=== PATIENT | female | born 2000 | race Caucasian/White ===

== ENCOUNTER 2022-05-19 09:12 | Day surgery (SDC) | payer BC, SELFPAY ==
[2022-05-19] VITALS (17 sets, daily range): BP systolic 105–127; BP diastolic 52–87; PULSE 69–94; RESP 13–20; TEMP 36.2–43; O2SAT 96–100; BMI 19.5
--- NOTE | 2022-05-19 09:17 | ED_ITS ---
ED Disposition Clinical Impression: Ectopic Qualifiers: Location of ectopic : unspecified location Intrauterine status: without intrauterine Qualified Code(s): O00.90 - Unspecified ectopic without intrauterine Disposition: Admitted As Inpatient Condition on Discharge: Fair Prescriptions: Hydrocod/Acet 5/325 mg [Gypsy 5/325mg tablet] 1 tab PO Q4HP PRN 3 Days #15 tab PRN Reason: Moderate To Severe Pain Transmission Status: Received by [id number] Ibuprofen [Ibuprofen 800mg Tablet] 800 mg PO Q8HP PRN #20 tab PRN Reason: Moderate Pain Transmission Status: Received by [id number] Ibuprofen [Ibuprofen 800mg Tablet] 800 mg PO Q8HP PRN #20 tab PRN Reason: Moderate Pain Transmission Status: Received by [facility] #[id number] Hydrocod/Acet 5/325 mg [Gypsy 5/325mg tablet] 1 tab PO Q4H PRN 3 Days #15 tab PRN Reason: Moderate To Severe Pain Transmission Status: Received by [facility] #[id number] Referrals: Provider,Referral, [Primary Care Provider] - Forms: Post-Op Work/School Release - Critical Care Critical Care Time: No Attestation: On , the high probability of a clinically significant, sudden or life threatening deterioration of the following system(s) required my full and direct attention, intervention and personal management. The time I documented below is in addition to time spent performing reported procedures but includes the following listed in this critical care notation. Medical Decision Making - Oliver Inquiry Pt receiving controlled substance: No Vital Signs: 05/19/22 09:13 05/19/22 09:25 05/19/22 09:36 Temperature 97.8 F Temperature Source Oral Pulse Rate 70 69 Pulse Rate [Radial] 73 Respiratory Rate 20 18 Blood Pressure 118/73 118/73 Blood Pressure [Right Arm] 115/64 Blood Pressure Mean 98 Blood Pressure Mean [Right Arm] 81 Blood Pressure Source Automatic Cuff Blood Pressure Source [Right Arm] Automatic Cuff Blood Pressure Position Sitting Blood Pressure Position [Right Arm] Sitting 02 Sat by Pulse Oximetry 98 100 100 Oxygen Delivery Method Room Air Room Air 05/19/22 12:00 05/19/22 14:00 05/19/22 14:04 Temperature 98.0 F 98.1 F 98.1 F Temperature Source Oral Temporal Artery Scan Pulse Rate 80 92 H Pulse Rate [Radial] 92 H Respiratory Rate 18 16 16 Blood Pressure 114/75 127/73 Blood Pressure [Right Arm] 127/73 Blood Pressure Mean Blood Pressure Mean [Right Arm] 91 Blood Pressure Source Blood Pressure Source [Right Arm] Automatic Cuff Blood Pressure Position Blood Pressure Position [Right Arm] Supine 02 Sat by Pulse Oximetry 100 Oxygen Delivery Method Room Air Room Air 05/19/22 14:10 05/19/22 14:20 05/19/22 14:30 Temperature Temperature Source Pulse Rate Pulse Rate [Radial] 79 77 71 Respiratory Rate 14 15 14 Blood Pressure Blood Pressure [Right Arm] 114/87 116/53 L 119/77 Blood Pressure Mean Blood Pressure Mean [Right Arm] 96 74 91 Blood Pressure Source Blood Pressure Source [Right Arm] Automatic Cuff Automatic Cuff Automatic Cuff Blood Pressure Position Blood Pressure Position [Right Arm] Supine Supine Supine 02 Sat by Pulse Oximetry 100 100 99 Oxygen Delivery Method Room Air Room Air Room Air 05/19/22 14:40 05/19/22 14:50 05/19/22 15:00 Temperature 97.5 F L Temperature Source Temporal Artery Scan Pulse Rate Pulse Rate [Radial] 77 79 80 Respiratory Rate 15 14 13 Blood Pressure Blood Pressure [Right Arm] 124/58 L 110/58 L 107/60 L Blood Pressure Mean Blood Pressure Mean [Right Arm] 80 75 75 Blood Pressure Source Blood Pressure Source [Right Arm] Automatic Cuff Automatic Cuff Automatic Cuff Blood Pressure Position Blood Pressure Position [Right Arm] Supine Supine Supine 02 Sat by Pulse Oximetry 96 97 97 Oxygen Delivery Method Room Air Room Air Room Air 05/19/22 15:04 05/19/22 15:05 05/19/22 15:20 Temperature 97.5 F L Temperature Source Temporal Artery Scan Pulse Rate Pulse Rate [Radial] 79 80 94 H Respiratory Rate 14 14 16 Blood Pressure Blood Pressure [Right Arm] 112/61 105/55 L 108/65 L Blood Pressure Mean Blood Pressure Mean [Right Arm] 78 71 79 Blood Pressure Source Blood Pressure Source [Right Arm] Automatic Cuff Automatic Cuff Automatic Cuff Blood Pressure Position Blood Pressure Position [Right Arm] Supine Sitting Supine 02 Sat by Pulse Oximetry 97 97 98 Oxygen Delivery Method Room Air Room Air Room Air 05/19/22 15:35 05/19/22 15:45 Temperature 97.2 F L Temperature Source Temporal Artery Scan Pulse Rate Pulse Rate [Radial] 71 72 Respiratory Rate 13 13 Blood Pressure Blood Pressure [Right Arm] 109/52 L 111/56 L Blood Pressure Mean Blood Pressure Mean [Right Arm] 71 74 Blood Pressure Source Blood Pressure Source [Right Arm] Automatic Cuff Blood Pressure Position Blood Pressure Position [Right Arm] Sitting 02 Sat by Pulse Oximetry 97 98 Oxygen Delivery Method Room Air Room Air - Lab Data Lab Results 05/19/22 09:22: Urine Color Yellow, Urine Appearance Clear, Urine pH 5.5, Ur Specific [place] >= 1.030, Urine Protein Negative, Urine Glucose (UA) Negative, Urine Ketones Negative, Urine Blood Negative, Urine Nitrate Negative, Urine Bilirubin Negative, Urine Urobilinogen 0.2, Ur Leukocyte Esterase Negative, Urine RBC None, Urine WBC None, Ur Squamous Epith Cells 3-5, Urine Bacteria Trace 05/19/22 09:22: WBC 8.8, RBC 4.52, Hgb 13.4, Hct 41.1, MCV 90.8, MCH 29.6, MCHC 32.6, RDW 13.6, Plt Count 258, MPV 9.1, Neut % (Auto) 71.2, Lymph % (Auto) 23.3, [place] % (Auto) 3.6, Eos % (Auto) 0.9, Baso % (Auto) 1.0, Neut # (Auto) 6.3, Lymph # (Auto) 2.1, [place] # (Auto) 0.3, Eos # (Auto) 0.1, Baso # (Auto) 0.1 05/19/22 09:22: Sodium 137, Potassium 4.0, Chloride 106, Carbon Dioxide 24, Anion Gap 11.0, BUN 12, Creatinine 0.60, Estimated Creat Clear 116, Estimated GFR 125, Est GFR ( Amer) 151, Glucose 102 H, Calcium 9.0, Total Bilirubin 0.4, AST 27, ALT 20, Alkaline Phosphatase 61, Total Protein 7.2, Albumin 4.2, Globulin 3.0, Albumin/Globulin Ratio 1.4 05/19/22 09:22: HCG, Quant [id number] H 05/19/22 10:12: Blood Type A Positive, Antibody Screen Negative 05/19/22 11:23: SARS-CoV-2 (PCR) Not detected, Influenza A Untype (PCR) Not detected, Influenza Type B (PCR) Not detected Result diagrams: 05/19/22 09:22 05/19/22 09:22 Orders (Tests/Meds): ED MEDICATIONS Discontinued Medications Generic Name Dose Route Start Last Admin Trade Name Freq PRN Reason Stop Dose Admin Hydromorphone HCl 1 mg 05/19/22 09:28 05/19/22 09:31 Hydromorphone 2mg/Ml Syringe IV 05/19/22 09:29 1 mg ONCE ONE Administration Hydromorphone HCl 0.5 mg 05/19/22 09:45 05/19/22 09:46 Hydromorphone 2mg/Ml Syringe IV 05/19/22 09:46 0.5 mg ONCE ONE Administration Hydromorphone HCl 1 mg 05/19/22 11:11 05/19/22 11:26 Hydromorphone 2mg/Ml Syringe IV 05/19/22 11:12 1 mg ONCE ONE Administration Hydromorphone HCl 0.5 mg 05/19/22 14:08 05/19/22 14:55 Hydromorphone 2mg/Ml Syringe IV 05/19/22 16:30 0.5 mg Q5MINP PRN Administration Moderate to Severe Pain Hydromorphone HCl 0.5 mg 05/19/22 16:47 05/19/22 11:47 Hydromorphone 2mg/Ml Syringe IV 05/19/22 16:48 0.5 mg ONCE ONE Administration Lactated Ringer's 1,000 mls @ 999 mls/hr 05/19/22 09:45 Lactated Ringer's 1000 Ml Bag IV 05/19/22 10:45 .Q1H1M MASON Sodium Chloride 1,000 mls @ 999 mls/hr 05/19/22 09:45 05/19/22 09:43 Sod Chlor 0.9% 1000ml Bag IV 05/19/22 10:45 999 mls/hr .Q1H1M MASON Administration Meperidine HCl 12.5 mg 05/19/22 14:08 Meperidine 25mg/Ml 1ml Syringe IV 05/19/22 16:30 Q5MINP PRN Shivering Meperidine HCl 25 mg 05/19/22 14:08 Meperidine 25mg/Ml 1ml Syringe IV 05/19/22 16:30 Q5MINP PRN SHIVERING Morphine Sulfate 2 mg 05/19/22 14:08 Morphine 2mg/Ml Syringe IV 05/19/22 16:30 Q5MINP PRN Severe Pain Ondansetron HCl 4 mg 05/19/22 11:11 05/19/22 11:26 Ondansetron 4mg/2ml Vial IV 05/19/22 11:12 4 mg ONCE ONE Administration Ondansetron HCl 4 mg 05/19/22 14:08 Ondansetron 4mg/2ml Vial IV 05/19/22 16:30 Q6HP PRN Nausea And Vomiting Promethazine HCl 12.5 mg 05/19/22 09:41 05/19/22 09:42 Promethazine Hcl 25mg/Ml 1ml Vial IV 05/19/22 09:42 12.5 mg ONCE ONE Administration Promethazine HCl 6.25 mg 05/19/22 14:08 Promethazine Hcl 25mg/Ml 1ml Vial IV 05/19/22 16:30 [id number] PRN Nausea And Vomiting Sodium Chloride 25 ml 05/19/22 09:41 Sodium Chloride 0.9% 25ml Bag IV 05/19/22 09:42 ONCE ONE Sodium Chloride 25 ml 05/19/22 14:08 Sodium Chloride 0.9% 25ml Bag IV 05/19/22 16:30 NEEDED PRN for Use with IV Promethazine Medical Decision Narrative: 22-year-old female presents emergency department with last menstrual period 03/16 with positive test on 05/03 and patient being seen by obstetrics in [facility]. Patient has right inguinal/right lower quadrant pain today that started intermittently last evening and is now constant and sharp. Patient has abdominal guarding on physical examination. [id number] transabdominal ultrasound was performed without any intrauterine able to be obviously visualized, with transvaginal ultrasound ordered in the emergency department. CBC, CMP ordered in the emergency department as well as 1 L crystalloid bolus and Dilaudid IV for pain control. Quantitative beta-hCG also ordered as well as type and screen, and urinalysis. Patient hemodynamically stable with remainder physical examination nonactionable. Quantitative beta-hCG greater than 14,000, transvaginal ultrasound shows pole in the right adnexal region with moderate blood consistent with ectopic . Obstetrics emergently consulted for ectopic with signs of rupture. Patient is Rh+, patient taken to the operating room. General Adult HPI - General Stated complaint: abd pain Time Seen by Provider: 05/19/22 09:41 - History of Present Illness HPI narrative: 22-year-old female presents emergency department with history of right inguinal/right lower quadrant pain that started last evening around midnight it was intermittent but has been constant for hours with patient stating she has not had fever or vomiting but has had nausea. Patient endorses 1 episode of diarrhea today and states that she has not had dysuria but does endorse frequency. Patient denies chest pain or shortness of breath. Patient states that her pain is sharp and radiates from her right lower quadrant/right inguinal region into anterior right lower extremity to about mid thigh. Patient had positive test on 05/[address] Mahsa Vega at [facility] in [facility] with patient stating that her last menstrual period was 6/4. Patient has had 3 miscarriages in the past and states that she is not passing any clots or having cramping type pain. Patient does state that she has had some blood with wiping after using the restroom, without any blood on pads that has been occurring for about 1 week. Patient has past medical history of PCOS and takes metformin for this. Past surgical history of tympanostomy tubes and colonoscopy due to weight loss history without any diagnosis made. Patient denies allergies to medications, denies smoking drinking or recreational drug use. - Related Data Home Medications Medication Instructions Recorded Confirmed Metformin HCl [Metformin 1000mg 500 mg PO BID 05/19/22 05/19/22 Tablets] Progesterone, Micronized 200 mg VG DAILY 05/19/22 05/19/22 [Progesterone] Sertraline HCl [Zoloft 50mg tablet] 50 mg PO DAILY 05/19/22 05/19/22 Previous Rx's Medication Instructions Recorded Hydrocod/Acet 5/325 mg [Gypsy 1 tab PO Q4H PRN 3 Days #15 tab 05/19/22 5/325mg tablet] Hydrocod/Acet 5/325 mg [Gypsy 1 tab PO Q4HP PRN 3 Days #15 tab 05/19/22 5/325mg tablet] Ibuprofen [Ibuprofen 800mg 800 mg PO Q8HP PRN #20 tab 05/19/22 Tablet] Ibuprofen [Ibuprofen 800mg 800 mg PO Q8HP PRN #20 tab 05/19/22 Tablet] Allergies Allergy/AdvReac Type Severity Reaction Status Date / Time No Known Allergies Allergy Verified 03/01/18 10:49 [facility] History - Hepatitis A Screen Attestation statement:: This patient has been screened for Hepatitis A risk factors. I have reviewed the patient's past medical history: Yes Medical History: Denies:: Cancer, Diabetes Mellitus Type 1, Diabetes Mellitus Type 2, MRSA Laterality Cases: Bilateral: Myringotomy (Ear Tubes) Other Surgeries: Yes: Colonoscopy Amputation: No Fractures: No - Social History Smoking Status: Never smoker Alcohol Intake: never Occupational Status: unemployed Family Hx:: No significant family history ROS Obtained: Yes All systems reviewed & no additional complaints Physical Exam - General General appearance: alert, in distress - Head Head exam: atraumatic, normocephalic - Eye Eye exam: Present: PERRL, EOMI - ENT ENT exam: Present: mucous membranes moist - Neck Neck exam: Present: full ROM, trachea midline - Chest Chest inspection: Present: normal inspection, symmetric chest wall rise - Respiratory Respiratory exam: Present: normal lung sounds bilaterally. Absent: wheezes - Cardiovascular Cardiovascular exam: Present: regular rate, normal rhythm, normal heart sounds - Abdominal Exam Abdominal exam: Present: soft Comment: Tenderness to palpation most prominent in the right lower quadrant/right inguinal region with guarding. No psoas sign - Extremities Exam Extremities exam: Present: normal inspection, full ROM - Back Exam Back exam: Present: normal inspection, full ROM. Absent: tenderness, CVA tenderness (R), CVA tenderness (L) - Neurological Exam Neurological exam: Present: alert, oriented X3
--- NOTE | 2022-05-19 09:20 | PC.NURSE ---
0915 YELENA COLLECTED AND SENT TO LAB
--- NOTE | 2022-05-19 09:25 | PC.NURSE ---
ED MD AT BEDSIDE FOR EVALUATION
[2022-05-19 09:29] LABS: Microscopic, Urine URINE MICROSCOPIC (MICROSCOPIC)
[2022-05-19 09:31] LABS: Appearance,Urine CLEAR (Clear); Basophils # 0.1 K/mm3 (0-0.2); Bilirubin,Urine Negative (Negative); Blood, Urine Negative (Negative); Color,Urine YELLOW (Yellow); Eosinophils # 0.1 K/mm3 (0.0-0.4); Eosinophils % 0.9 % (0.1-12.0); Glucose,Urine (UA) Negative (Negative); Hematocrit 41.1 % (37.0-47.0); Hemoglobin 13.4 g/dL (12.2-16.2); Ketones,Urine Negative (Negative); Leukocyte Esterase,Urine Negative (Negative); Lymphocytes # 2.1 K/mm3 (0.7-4.5); Lymphocytes % 23.3 % (10-50); Mean Corpuscular HGB Conc 32.6 g/dL (31.8-35.4); Mean Corpuscular Hemoglobin 29.6 pg (27.0-31.2); Mean Corpuscular Volume 90.8 fl (81-99); Mean Platelet Volume 9.1 fl (7.4-10.4); Monocytes # 0.3 K/mm3 (0.1-1.0); Monocytes % 3.6 % (1.7-9.3); Neutrophils # 6.3 K/mm3 (1.8-7.8); Neutrophils % 71.2 % (37.0-80.0); Nitrate,Urine Negative (Negative); PH,Urine 5.5 (5.0-8.5); Platelet Count 258 K/mm3 (142-424); Protein,Urine Negative (Negative); Red Blood Count 4.52 M/mm3 (4.20-5.40); Red Cell Distribution Width 13.6 % (11.5-17.5); Specific Gravity, Urine >= 1.030 (1.005-1.030); Urobilinogen,Urine 0.2 EU/dl (0.2); White Blood Count 8.8 K/mm3 (4.8-10.8)
[2022-05-19] MEDS: HYDROMORPHONE 2MG/ML SYRINGE 1 MG IV ×2 (09:31→11:26)
[2022-05-19 09:37] LABS: Alanine Aminotransferase 20 U/L (12-78); Albumin Level 4.2 g/dl (3.5-5.0); Albumin/Globulin Ratio 1.4 (1.1-1.8); Alkaline Phosphatase 61 U/L (38-126); Aspartate Amino Transferase 27 U/L (14-36); Bilirubin,Total 0.4 mg/dl (0.2-1.3); Blood Urea Nitrogen 12 mg/dl (7-17); Carbon Dioxide 24 mmol/L (22.0-30.0); Chloride 106 mmol/L (98-107); Creatinine Clearance Estimated 116 mL/min (50-200); Estimated Glomerular Filt Rate 125 ml/min (>60); GFR (African American) 151 ML/MIN (>60); Glucose 102 mg/dl (74-100); Sodium 137 mmol/L (136-145); Total Protein,Serum 7.2 g/dl (6.3-8.2)
--- NOTE | 2022-05-19 09:37 | US_ITS ---
PROCEDURE INFORMATION: Exam: US , Transvaginal Exam date and time: 05/19/2022 10:37 AM Age: 22 years old Clinical indication: complicated by abdominal or pelvic pain; Right lower quadrant; First trimester (<14 weeks 0 days); Gestational age or lmp: 9 w 1 d; ; Additional info: Right lower quadrant pain started last night; Spotting in early TECHNIQUE: Imaging protocol: Real-time transvaginal obstetrical ultrasound of the maternal pelvis with image documentation. Transvaginal imaging was used for better evaluation of the fetus, adnexa, and/or cervix. COMPARISON: [facility] US OB transvaginal 04/14/2019 8:34 PM FINDINGS: Gestation: A gestational sac is seen in or adjacent to the right ovary. heart rate: heart rate is 79 bpm. BIOMETRY: Gestational age (AUA): The mean sac diameter is 1.51 cm, corresponding to a gestational age of 6 weeks 2 days. The crown-rump length is 2.85 cm, corresponding to a gestational age of 6 weeks 0 days. MATERNAL: Uterus: The uterus measures 7.7 x 4.4 x 5.3 cm. The endometrial canal is thickened with a pseudo gestational sac seen at the fundus. Right ovary/adnexa: A gestational sac is seen in or adjacent to the right ovary. The right ovary measures 5.0 x 4.6 x 2.9 cm. Arterial and venous flow are documented. Left ovary/adnexa: The left ovary measures 3.2 x 1.6 x 2.6 cm. Arterial and venous flow are documented. No mass. Intraperitoneal space: Moderate volume free fluid in the pelvis with internal echoes, suggesting hemorrhage. Urinary bladder: Normal as imaged. IMPRESSION: Ectopic in or adjacent to the right ovary with a moderate amount of blood products in the pelvis. THIS REPORT CONTAINS FINDINGS THAT MAY BE CRITICAL TO PATIENT CARE. The findings were verbally communicated via telephone conference with Min Darden at 11:29 AM EDT on 05/19/2022. The findings were acknowledged and understood.
--- NOTE | 2022-05-19 09:37 | PC.NURSE ---
RADIOLOGY NOTIFIED OF TRANSVAGINAL U/S
[2022-05-19 09:42] LABS: Bacteria,Urine Trace /lpf
[2022-05-19] MEDS: PROMETHAZINE HCL 25MG/ML 1ML VIAL 12.5 MG IV (09:42)
[2022-05-19] MEDS: 0.9 % SODIUM CHLORIDE 1,000 ML 999 ML IV (09:43)
[2022-05-19] MEDS: HYDROMORPHONE 2MG/ML SYRINGE 0.5 MG IV ×3 (09:46→14:55)
--- NOTE | 2022-05-19 09:47 | PC.NURSE ---
called xray for construction job titles ultrasound
--- NOTE | 2022-05-19 10:03 | PC.NURSE ---
PT UPDATED ON POC, S.O AT BEDSIDE. MORE COMFORTABLE AT THIS TIME. NO NEEDS VOICED
--- NOTE | 2022-05-19 10:09 | PC.NURSE ---
LAB AT BEDSIDE
[2022-05-19 10:10] LABS: HCG,Quantitative 14818 mIU/ml (0-5.42)
--- NOTE | 2022-05-19 10:23 | PC.NURSE ---
ROUNDED ON PT, S.O AT BEDSIDE. NO NEEDS VOICED. INFORMED THAT Back& IS ON HER WAY FOR U/S
--- NOTE | 2022-05-19 10:31 | PC.NURSE ---
PT TO US AT THIS TIME
--- NOTE | 2022-05-19 10:35 | PC.NURSE ---
pt to rad
--- NOTE | 2022-05-19 10:59 | INFXCTL.NOTE ---
OB ON-CALL PAGED
--- NOTE | 2022-05-19 11:00 | PC.NURSE ---
JUAN MIGUEL PATE SPEAKING WITH [employer]
--- NOTE | 2022-05-19 11:00 | PC.NURSE ---
ED MD DISCUSSING POC WITH PT AND S.O
--- NOTE | 2022-05-19 11:02 | PC.NURSE ---
JUAN MIGUEL PATE SPEAKING WITH DR. GOINS
--- NOTE | 2022-05-19 11:07 | PC.NURSE ---
DR. GOINS WILL BE IN TO SEE PT
[2022-05-19 11:25] LABS: Coronavirus 19, PCR Not Detected (NotDetected); Influenza A, PCR Not Detected (NotDetected); Influenza B, PCR Not Detected (NotDetected)
[2022-05-19] MEDS: ONDANSETRON 4MG/2ML VIAL 4 MG IV (11:26)
--- NOTE | 2022-05-19 11:30 | PC.NURSE ---
ED MD AT BEDSIDE TO UPDATE PT AND S.O ON POC, DR. GOINS WILL BE IN TO SEE PT. NO NEEDS AT THIS TIME
--- NOTE | 2022-05-19 11:45 | PC.NURSE ---
[id number] SURGERY TEAM AT BEDSIDE
--- NOTE | 2022-05-19 11:51 | HMH.HP ---
*Admission Date: 05/19/22 *Chief complaint: 1. Right lower quadrant pain, vaginal bleeding, positive *History of present illness: Ms Kraig Salinas is a 22 yo at approximately 9 weeks by LMP. She has been seeing Mahsa Vega APRN at at [facility] in [place]. FDP 03/16/22. She was trying to conceive. First positive test was 05/03/22. She has been taking Metformin for PCOS, Zoloft for anxiety and depression, and progesterone to help support this . She reports history of 3 prior spontaneous abortions. She admits to intermittent vaginal bleeding for the past 5 days. RLQ pain started at midnight and has progressively increased. [facility] History I have reviewed the patient's past medical history: Yes (PCOS) Medical History: Reports:: Anxiety, Depression Denies:: Cancer, Diabetes Mellitus Type 1, Diabetes Mellitus Type 2, MRSA *Have you ever received a pneumonia vaccine?: No *Have you received a flu vaccine this season?: No Laterality Cases: Bilateral: Myringotomy (Ear Tubes) Other Surgeries: Yes: Colonoscopy Amputation: No Fractures: No - *Social History Smoking Status: Never smoker Alcohol Intake: never *Occupational Status:: unemployed *Travel in the last 8 weeks: None Family Hx:: No significant family history HUMAN RESOURCES COMPENSATION ANALYST history: Spontaneous (x 3) : 4 Para: 3 A: 3 LMP comments: Review of Systems - Review of Systems Review of systems:: pertinent systems reviewed and negative unless documented below - *Gastrointestinal Reports abdominal pain - *Genitourinary Reports abnormal vaginal bleeding (positive test) Meds Home Medications Medication Instructions Recorded Confirmed Type Metformin HCl [Metformin 1000mg 500 mg PO BID 05/19/22 05/19/22 History Tablets] Progesterone, Micronized 200 mg VG DAILY 05/19/22 05/19/22 History [Progesterone] Sertraline HCl [Zoloft 50mg tablet] 50 mg PO DAILY 05/19/22 05/19/22 History Allergies Allergy/AdvReac Type Severity Reaction Status Date / Time No Known Allergies Allergy Verified 03/01/18 10:49 Exam Vital signs and Labs for Last 24 Hours: Temp Pulse Resp BP Pulse Ox 97.8 F 69 18 118/73 100 05/19/22 09:13 05/19/22 09:36 05/19/22 09:25 05/19/22 09:36 05/19/22 09:36 Laboratory Results - last 24 hr 05/19/22 09:22: Urine Color Yellow, Urine Appearance Clear, Urine pH 5.5, Ur Specific [place] >= 1.030, Urine Protein Negative, Urine Glucose (UA) Negative, Urine Ketones Negative, Urine Blood Negative, Urine Nitrate Negative, Urine Bilirubin Negative, Urine Urobilinogen 0.2, Ur Leukocyte Esterase Negative, Urine RBC None, Urine WBC None, Ur Squamous Epith Cells 3-5, Urine Bacteria Trace 05/19/22 09:22: WBC 8.8, RBC 4.52, Hgb 13.4, Hct 41.1, MCV 90.8, MCH 29.6, MCHC 32.6, RDW 13.6, Plt Count 258, MPV 9.1, Neut % (Auto) 71.2, Lymph % (Auto) 23.3, [place] % (Auto) 3.6, Eos % (Auto) 0.9, Baso % (Auto) 1.0, Neut # (Auto) 6.3, Lymph # (Auto) 2.1, [place] # (Auto) 0.3, Eos # (Auto) 0.1, Baso # (Auto) 0.1 05/19/22 09:22: Sodium 137, Potassium 4.0, Chloride 106, Carbon Dioxide 24, Anion Gap 11.0, BUN 12, Creatinine 0.60, Estimated Creat Clear 116, Estimated GFR 125, Est GFR ( Amer) 151, Glucose 102 H, Calcium 9.0, Total Bilirubin 0.4, AST 27, ALT 20, Alkaline Phosphatase 61, Total Protein 7.2, Albumin 4.2, Globulin 3.0, Albumin/Globulin Ratio 1.4 05/19/22 09:22: HCG, Quant [id number] H 05/19/22 10:12: Blood Type A Positive 05/19/22 11:23: SARS-CoV-2 (PCR) Not detected, Influenza A Untype (PCR) Not detected, Influenza Type B (PCR) Not detected I & O for Last 24 hours: Intake & Output 05/16/22 05/17/22 05/18/22 05/19/22 23:59 23:59 23:59 23:59 Weight 110 lb - Constitutional mild distress - *Routine HEENT Exam Head: Present: normocephalic Eye: Absent: conjunctivae pink ENT: Present: mucous membranes moist - *Routine Respiratory Exam Present: CTA bilaterally - *Routine Cardiovascular Exam Present: RRR - *Routine Abdominal Exam Present: soft, tenderness (RLQ). Absent: distended - *Routine Rectal Exam Rectal:: deferred - *Routine Genitalia Exam Genitalia:: deferred - *Routine Extremities Exam Present: full ROM. Absent: edema, calf tenderness - Routine Psychiatric Exam Present: normal affect H&P: Result - Imaging and Cardiology TESTING Status: final report (Extrauterine gestational sac in or next to right ovary with FHR 79 bpm measuring approximately 6 weeks 0 days) Assessment and Plan (1) Abdominal pain, acute, right lower quadrant Status: Acute Category: Medical Code(s): R10.31 - Right lower quadrant pain (2) Vaginal bleeding affecting early Status: Acute Category: Medical Code(s): O20.8 - Other hemorrhage in early (3) Ectopic Status: Acute Category: Medical Code(s): O00.90 - Unspecified ectopic without intrauterine (4) History of spontaneous Status: Acute Category: Medical Code(s): Z87.59 - Personal history of other complications of , childbirth and the puerperium (5) PCOS (polycystic ovarian syndrome) Status: Acute Category: Medical Code(s): E28.2 - Polycystic ovarian syndrome (6) Anxiety Status: Acute Category: Medical Code(s): F41.9 - Anxiety disorder, unspecified (7) Depression Status: Acute Category: Medical Code(s): F32.A - Depression, unspecified - Assessment and plan all Dx Assessment and Plan for all problems:: To OR for laparoscopy, possible right salpingo oophorectomy. Patient last ate and drank around [id number] on 05/18/22 Discussed risks, benefits, alternatives, expectations and possible complications. All questions addressed and answered. Consent form signed Proceed with surgery.
--- NOTE | 2022-05-19 11:52 | PC.NURSE ---
ob here to talk to pt about surgery
--- NOTE | 2022-05-19 11:59 | PC.NURSE ---
pt is gone to surgery with dr mccloud ob
--- NOTE | 2022-05-19 11:59 | PC.NURSE ---
PT TO SURGERY AT THIS TIME PER OR STAFF
--- NOTE | 2022-05-19 12:29 | HMH.ANESCL ---
[facility] Anesthesia Checklist - Patient Identification Patient Identification: Arm Band - Structural Data Admitted From: Emergency Dept Planned Operative Procedure/s: Diagnostic Laparoscopy, Possible Right Salping-Oopherectomy Consent for Planned Operative Procedure(s) Verified: Yes Verified Documents: Surgical Consent, History and Physical - NPO Status Verified Time NPO: 00:00 - Additional verifications Anesthesia Reactions: No - Airway Assessment C-Spine Mobility Assessed: Yes (mp2) TMJ Mobility Assessed: Yes Dentition: Good Dentition - Neurological Assessment Level of Consciousness: Awake, Alert - Anesthesia Plan Anesthesia Risk discussed: Yes Anesthesia Plan: Verified ASA Class: I (e) Anesthesia Type: General - Preoperative Comments Pre-Operative Comments: nac [facility] History I have reviewed the patient's past medical history: Yes Medical History: Reports:: Anxiety, Depression Denies:: Cancer, Diabetes Mellitus Type 1, Diabetes Mellitus Type 2, MRSA *Have you ever received a pneumonia vaccine?: No *Have you received a flu vaccine this season?: No Anesthesia experience/problems:: nac Laterality Cases: Bilateral: Myringotomy (Ear Tubes) Other Surgeries: Yes: Colonoscopy Amputation: No Fractures: No - *Social History Smoking Status: Never smoker Alcohol Intake: never Substance Use Type: denies use *Occupational Status:: unemployed *Travel in the last 8 weeks: None - Psychiatric History Pschychiatric History:: Reports:: Anxiety, Depression Family Hx:: No significant family history PHOTOGRAPH DEVELOPER history: Spontaneous (x 3) Para: 3 A: 3 LMP comments:
[2022-05-19] MEDS: ROPIVACAINE 0.5% 30ML VIAL 150 MG (13:20)
--- NOTE | 2022-05-19 13:30 | SUR.OPER ---
1325 family given updated
--- NOTE | 2022-05-19 13:41 | SUR.OPER ---
1335 family given an update
--- NOTE | 2022-05-19 14:03 | P.PN_ITS ---
[facility] Anesthesia Record Part I Intake, IV Amount: 1,400 Estimated blood loss (mL): 10 Urine output (mL): 100 Blood Pressure: 127/73 SaO2: 100 Pulse Rate: 92 Respiratory Rate: 16 Temperature: 98.1 F Patient is:: Drowsy, Stable Stable to PACU at:: 14:00
--- NOTE | 2022-05-19 14:07 | P.OP_ITS ---
Date of procedure: 05/19/22 Pre-op Diagnosis:: 1. Abdominal pain, acute, right lower quadrant 2. Vaginal bleeding affecting early 3. Ectopic 4. History of spontaneous 5. PCOS (polycystic ovarian syndrome) 6. Anxiety 7. Depression Post-op Diagnosis:: 1. Abdominal pain, acute, right lower quadrant 2. Vaginal bleeding affecting early 3. Ectopic 4. History of spontaneous 5. PCOS (polycystic ovarian syndrome) 6. Anxiety 7. Depression Procedure performed:: Laparoscopy, right salpingectomy, evacuation of hemoperitoneum Surgeon:: Beena De Paz DO Showcase Maker(s):: Aristeo Mulligan MD INTERNET SOURCER:: Luc Melendez Anesthesia: GETA Estimated blood loss (mL): 10 Clinical Note:: Ms Kraig Salinas is a 22 yo at approximately 9 weeks by LMP. She has been seeing Mahsa Vega APRN at at [facility] in [place]. FDP 03/16/22. She was trying to conceive. First positive test was 05/03/22. She has been taking Metformin for PCOS, Zoloft for anxiety and depression, and progesterone to help support this . She reports history of 3 prior spontaneous abortions. She admits to intermittent vaginal bleeding for the past 5 days. RLQ pain started at midnight and has progressively increased. Pelvic ultrasound demonstrated: A gestational sac is seen in or adjacent to the right ovary. heart rate: heart rate is 79 bpm. BIOMETRY: Gestational age (AUA): The mean sac diameter is 1.51 cm, corresponding to a gestational age of 6 weeks 2 days. The crown-rump length is 2.85 cm, corresponding to a gestational age of 6 weeks 0 days. MATERNAL: Uterus: The uterus measures 7.7 x 4.4 x 5.3 cm. The endometrial canal is thickened with a pseudo gestational sac seen at the fundus. Right ovary/adnexa: A gestational sac is seen in or adjacent to the right ovary. The right ovary measures 5.0 x 4.6 x 2.9 cm. Arterial and venous flow are documented. Left ovary/adnexa: The left ovary measures 3.2 x 1.6 x 2.6 cm. Arterial and venous flow are documented. No mass. Intraperitoneal space: Moderate volume free fluid in the pelvis with internal echoes, suggesting hemorrhage. Urinary bladder: Normal as imaged. IMPRESSION: Ectopic in or adjacent to the right ovary with a moderate amount of blood products in the pelvis. Operative findings:: On bimanual exam, uterus was anteverted and of normal size and shape. No adnexal masses palpated. On laparoscopic exam, normal appearing liver, gallbladder and stomach. Grossly normal appearing uterus and bilateral ovaries. Right fallopian tube containing ectopic with active bleeding from fimbriated end. Blood and clots present in the abdomen and pelvis. Operative note:: Risks, benefits and alternatives were discussed with the patient. Risks include but are not limited to bleeding, infection, damage to adjacent structures and VTE. Patient voiced understanding and agreed to proceed with surgery. She was wheeled back to the operating room and placed under general anesthesia without difficulty. She was placed in the dorsal lithotomy position and prepped and draped in normal sterile fashion. A barnhart catheter was inserted into the bladder and draining clear urine prior to the start of the procedure. A bimanual exam was performed. A weighted Auvard was placed in the vaginal vault. A single tooth tenaculum was placed on the anterior lip of the cervix. [place] manipulator was inserted into the cervical canal and attached to the tenaculum. Weighted Auvard was removed from the vagina. Attention was then drawn to the abdomen. A 2cm infraumbilical incision was made. Veress needle was tested and inserted intraabdominally without difficulty. Opening pressure of 7 mm Hg that quickly jumped to 15 mm Hg. Veress needle was removed and reinserted. Opening pressure on second insertion was 4 mm Hg and the increased to 12 mm Hg. Abdomen was insulflated with CO2 gas to a pressure of 15 mm Hg. A 12 mm blunt trocar with laparoscope was inserted into the abdomen. The trocar and scope were removed and laparoscope was reinserted and access to peritoneal cavity was not achieved. Dr. Mulligan was consulted to help access peritoneal cavity. Dr. Mulligan inserted Veress needle in RUQ. Opening pressure was 4 mm Hg. Abdomen was then insulflated to 15 mm Hg. Trocar was inserted through infraumbilical incision and laparoscope was inserted. Abdomen was viewed in its entirety. See findings above. Pictures were taken. Left lower quadrant was transilluminated. 5 mm incision was made and 5 mm disposable blunt trocar was inserted into the abdomen under direct laparoscopic visualization. Trocar was removed and sleeve was left in place. Right lower quadrant was transilluminated. A 2 cm incision was made and a 12 mm disposable trocar was inserted into the abdomen under direct laparoscopic visualization. Obturator was removed and sleeve was left in place. Hemoperitoneum was evacuated. Fimbriated end of right fallopian tube was grasped and Sycamore clamp. Harmonic was used to transect the right mesosalpinx and fallopian tube at uterine cornua, leaving right ovary in situ. Endopouch was inserted through the trocar and into the abdomen. Right fallopian tube with ectopic were placed in the Endopouch, intact. Endopouch with specimen was removed from the abdomen and will be sent to pathology for review. Hemostasis was noted. Pelvis was irrigated with clear return of fluids. Left lower quadrant trocar was removed under direct laparoscopic visualization. Right lower quadrant trocar was removed under direct laparoscopic visualization. Pneumoperitoneum was released into the atmosphere. Infraumbilical trocar was removed under direct laparoscopic visualization to ensure no herniation of bowel or omentum. Skin incisions were closed with 3-0 Vicryl. Steri strips followed by sterile 2 x 2 gauze and Tegaderm was applied over closed skin incisions. All instruments were removed from the vagina. Tenaculum site was noted to be hemostatic. Barnhart catheter was noted to be draining clear urine at the end of the procedure. Barnhart catheter was removed. Patient was cleaned and placed into the dorsal supine position. She awoke from anesthesia without difficulty. She was transported to the recovery room in [facility] emergency condition. She was given instructions for discharge and to follow-up in the office in 2 weeks at which time pathology will be reviewed. Condition: stable Disposition: same day Specimens:: Right fallopian tube and ectopic Complications:: None
[2022-05-20 07:27] VITALS: BP 112/61; PULSE 79; TEMP 36.4
--- NOTE | 2022-05-20 07:27 | HMH.ANESII ---
[facility] Anesthesia Record Part II Discharge Time: 15:04 Destination: Surgical Day Care (OP Surgery) PACU nurse assessment reviewed?: Yes Patient Condition:: Good Anesthesia Complications:: None Swallowing reflex intact?: Yes Cyanosis?: No Blood Pressure: 112/61 Pulse Rate: 79 Temperature: 97.5 F Mental Status: Alert & Oriented Pain level:: 5 Nausea and/or vomitting:: None Intake, IV Amount: 0
== END 2022-05-19 12:00 | disposition home or self-care (01) ==
PROVIDERS: Obstetrics & Gynecology; Visit Provider Student in an Organized Health Care Education/Training Program
PROC: (CPT 49320; principal; 2022-05-19 12:30)
DX: O26.851 Spotting complicating pregnancy, first trimester (principal); E28.2 Polycystic ovarian syndrome; Z87.59 Personal history of other complications of pregnancy, childbirth and the puerperium; R10.31 Right lower quadrant pain; O00.90 Unspecified ectopic pregnancy without intrauterine pregnancy; N96 Recurrent pregnancy loss; F41.9 Anxiety disorder, unspecified; F32.A Depression, unspecified; Z3A.09 9 weeks gestation of pregnancy
CPT/HCPCS: 59151; 76817; 80053; 81001; 84702; 85025; 86850; 86900; 86901; C9803; J2405; J2710; U0003; U0005

== ENCOUNTER → 2022-06-08 08:01 | Outpatient (CLI) | payer BC, SELFPAY ==
[2022-06-08 09:32] LABS: HCG,Quantitative 16 mIU/ml (0-5.42)
== END ==
PROVIDERS: Visit Provider Obstetrics & Gynecology
DX: Z34.90 Encounter for supervision of normal pregnancy, unspecified, unspecified trimester (principal)
CPT/HCPCS: 36415; 84702

== ENCOUNTER → 2022-06-21 16:47 | Outpatient (CLI) | payer BC, SELFPAY ==
[2022-06-21 19:12] LABS: HCG,Quantitative < 2 mIU/ml (0-5.42)
== END ==
PROVIDERS: Visit Provider Obstetrics & Gynecology
DX: O02.1 Missed abortion (principal)
CPT/HCPCS: 36415; 84702

== ENCOUNTER → 2022-07-10 15:50 | Outpatient (CLI) | payer BC, SELFPAY ==
[2022-07-10 17:38] LABS: Thyroid Stimulating Hormone 0.99 uIU/mL (0.465-4.68)
[2022-07-12 16:08] LABS: Anti-Cardio Antibody IgM <9 MPL U/mL (0-12); Anti-Cardiolipin Antibody IgG <9 GPL U/mL (0-14); Anticardiolipin Ab,IgA,Qn <9 APL U/mL (0-11)
[2022-07-19 18:09] LABS: APTT 27.3 sec (.); Anti-Cardiolipin Antibody IgG <10 GPL (.); Anti-Cardiolipin Antibody IgM <10 MPL (.); Beta-2 Glycoprotein I Ab, IgA <10 SAU (.); Beta-2 Glycoprotein I Ab, IgG <10 SGU (.); Beta-2 Glycoprotein I Ab, IgM <10 SMU (.); Hexagonal Phase Phospholipid 0 sec (.); INR 1.1 ratio (.); Prothrombin Time 11.9 sec (.); Thrombin Time 21.8 sec (.)
== END ==
PROVIDERS: Visit Provider Obstetrics & Gynecology
DX: N96 Recurrent pregnancy loss (principal)
CPT/HCPCS: 36415; 84443; 85597; 85598; 85610; 85613; 85670; 85730; 86146; 86147

== ENCOUNTER → 2022-12-21 10:44 | Outpatient (CLI) | payer BC, SELFPAY ==
[2022-12-21 12:35] LABS: Basophils # 0.1 K/mm3 (0-0.2); Basophils % 1.6 % (0.1-2.0); Eosinophils # 0.2 K/mm3 (0.0-0.4); Eosinophils % 3.7 % (0.1-12.0); Hematocrit 41.7 % (37.0-47.0); Hemoglobin 13.7 g/dL (12.2-16.2); Lymphocytes # 1.7 K/mm3 (0.7-4.5); Lymphocytes % 40.3 % (10-50); Mean Corpuscular HGB Conc 32.9 g/dL (31.8-35.4); Mean Corpuscular Hemoglobin 29.6 pg (27.0-31.2); Mean Corpuscular Volume 89.9 fl (81-99); Mean Platelet Volume 9.3 fl (7.4-10.4); Monocytes # 0.3 K/mm3 (0.1-1.0); Monocytes % 6.3 % (1.7-9.3); Neutrophils # 2.1 K/mm3 (1.8-7.8); Platelet Count 233 K/mm3 (142-424); Red Blood Count 4.63 M/mm3 (4.20-5.40); Red Cell Distribution Width 13.5 % (11.5-17.5); White Blood Count 4.3 K/mm3 (4.8-10.8)
[2022-12-21 12:48] LABS: Chloride 105 mmol/L (98-107); Potassium 4.4 mmoL/L (3.5-5.1); Sodium 139 mmol/L (136-145)
[2022-12-21 12:51] LABS: Alanine Aminotransferase 14 U/L (12-78); Albumin Level 4.1 g/dl (3.5-5.0); Albumin/Globulin Ratio 1.5 (1.1-1.8); Alkaline Phosphatase 58 U/L (38-126); Anion Gap 11.4 mEq/L (5-15); Aspartate Amino Transferase 26 U/L (14-36); Bilirubin,Total 1.1 mg/dl (0.2-1.3); Blood Urea Nitrogen 13 mg/dl (7-17); Calcium 8.6 mg/dl (8.4-10.2); Carbon Dioxide 27 mmol/L (22.0-30.0); Estimated Glomerular Filt Rate 105 ml/min (>60); GFR (African American) 127 ML/MIN (>60); Globulin 2.8 g/dL (1.3-3.2); Glucose 71 mg/dl (74-100); Total Protein,Serum 6.9 g/dl (6.3-8.2)
[2022-12-21 13:16] LABS: HCG,Quantitative < 2 mIU/ml (0-5.42)
== END ==
PROVIDERS: Visit Provider Obstetrics & Gynecology
DX: N96 Recurrent pregnancy loss (principal)
CPT/HCPCS: 36415; 80053; 84702; 85025

== ENCOUNTER 2022-12-26 06:03 | Day surgery (SDC) | payer BC, SELFPAY ==
[2022-12-25 09:05] VITALS: BMI 20.2
[2022-12-26] VITALS (10 sets, daily range): BP systolic 98–125; BP diastolic 49–78; PULSE 60–96; RESP 3–18; TEMP 36.4–36.9; O2SAT 97–100
--- NOTE | 2022-12-26 06:49 | EXP.ANES.CKL ---
[facility] Disclaimer: The information contained in this section may have been updated after the patient was seen, as this information can be updated by other users. Medical History Dysmenorrhea Follow-up exam Hx of ectopic Irregular periods Migraine Patient desires Recurrent loss Screening for genetic disease carrier status Surgical History History of bilateral fallopian tube excision Family History Other No significant family history Social History Smoking Status: Never smoker alcohol intake: never substance use type: denies use current occupational status: unemployed Travel in the last 8 weeks: None [facility] Anesthesia Checklist Patient Identification Patient Identification: Arm Band and Verbal (Name & ) Structural Data Admitted From: Home Planned Operative Procedure/s: Hysteroscopy, D & C Consent for Planned Operative Procedure(s) Verified: Yes NPO Status Verified Time NPO: 00:00 Chart Verification Results Verified: CBC, BMP and HCG Additional verifications Anesthesia Reactions: No Hx Blood Transfusions: No Blood Transfusion Reaction: No Airway Assessment C-Spine Mobility Assessed: Yes TMJ Mobility Assessed: No Dentition: Good Dentition Neurological Assessment Level of Consciousness: Awake Hx Seizures: No Numbness or tingling in extremities: No Anesthesia Plan Anesthesia Risk discussed: Yes Anesthesia Plan: Verified ASA Class: II Anesthesia Type: MAC
--- NOTE | 2022-12-26 09:10 | EXP.OP.NOTE ---
Date of procedure: 12/26/22 Pre-op Diagnosis:: 1. Recurrent loss Post-op Diagnosis:: 1. Recurrent loss Procedure performed:: Diagnostic hysteroscopy Surgeon:: Beena De Paz DO Director Industrial Relations(s):: N/a GUNITE MIXER:: Pravin Cabrera Anesthesia: GETA Estimated blood loss (mL): 0 Clinical Note:: Ms Kraig thomason is a very pleasant 22 yo [id number] who presents to [facility] for scheduled procedure. She has history of recurrent loss. She had pre-conceptual counseling with [facility]. She was given a script for progesterone which she was instructed to start day 3 after ovulation. An HSG or hysteroscopy to evaluate uterus was also recommended. She is doing well on Metformin 500 mg TID and PNV daily. She admits periods have been regular. Operative findings:: On bimanual exam, uterus normal size and shape, midposition. No adnexal masses palpated On hysteroscopic exam, bilateral tubal ostia easily visualized. Grossly normal appearing endometrial cavity. No lesions or masses. Operative note:: Risks, benefits and alternatives were discussed with the patient. Risks include but are not limited to bleeding, infection, uterine perforation and VTE. Patient voiced understanding and agreed to proceed. She was wheeled back to the operating room and placed under general anesthesia without difficulty. She was placed in dorsal lithotomy position and prepped and draped in the normal sterile fashion. A bimanual exam was performed. A weighted Auvard was placed in the vaginal vault. Single tooth tenaculum was placed on anterior lip of the cervix. Uterus sounded to 6. Sequential Uche dilators were used to dilate the cervical os. Hysteroscope was inserted through the cervix without difficulty. Endometrial cavity was evaluated. See findings above. Pictures were taken. Hysteroscope was removed. Instruments were removed from the vagina. Small amount of oozing at tenaculum site noted. Silver nitrate stick x 2 and pressure resulted in hemostasis. Patient was awaken from anesthesia without difficulty. She was transported to recovery room in stable condition. Patient will be discharged home when awake and ambulating. She was given postop instructions as well as instructions to follow-up in the office in 2 weeks. Condition: stable Disposition: same day Specimens:: N/a Complications:: None
== END 2022-12-26 10:32 | disposition home or self-care (01) ==
PROVIDERS: Visit Provider Obstetrics & Gynecology
PROC: 0UDB8ZZ Extraction of Endometrium, Via Natural or Artificial Opening Endoscopic (ICD-10-PCS; CPT 58558; principal; 2022-12-26 07:30)
DX: N96 Recurrent pregnancy loss (principal); Z79.899 Other long term (current) drug therapy
CPT/HCPCS: 58555; J2405

== ENCOUNTER → 2023-02-06 16:39 | Outpatient (CLI) | payer BC, SELFPAY ==
[2023-02-08 12:10] LABS: Progesterone 26.5 ng/mL (.)
== END ==
PROVIDERS: Visit Provider Obstetrics & Gynecology
DX: E28.2 Polycystic ovarian syndrome (principal)
CPT/HCPCS: 36415; 84144

== ENCOUNTER → 2023-03-07 16:44 | Outpatient (CLI) | payer BC, SELFPAY ==
[2023-03-09 06:47] LABS: Progesterone 13.5 ng/mL (.)
== END ==
PROVIDERS: PCP Obstetrics & Gynecology; Visit Provider Obstetrics & Gynecology
DX: E28.2 Polycystic ovarian syndrome (principal)
CPT/HCPCS: 36415; 84144

== ENCOUNTER → 2023-07-15 23:42 | Outpatient (CLI) | payer BC, SELFPAY ==
[2023-07-15 19:40] LABS: Hemoglobin A1C 4.8 % (4.0-6.0)
[2023-07-15 20:01] LABS: HCG,Quantitative < 2 mIU/ml (0-5.42)
== END ==
PROVIDERS: PCP Nurse Practitioner; Visit Provider Nurse Practitioner
DX: R30.0 Dysuria (principal); R82.4 Acetonuria; E28.2 Polycystic ovarian syndrome; Z79.899 Other long term (current) drug therapy
CPT/HCPCS: 83036; 84702; 87086

== ENCOUNTER → 2023-07-23 15:57 | Outpatient (CLI) | payer BC, SELFPAY | PROVIDERS: PCP Nurse Practitioner; Visit Provider Nurse Practitioner | DX: R35.0 Frequency of micturition (principal) | CPT/HCPCS: 87086 ==

== ENCOUNTER → 2023-07-31 16:47 | Outpatient (CLI) | payer BC, SELFPAY ==
[2023-08-02 08:15] LABS: Estradiol 27.2 pg/mL (.)
== END ==
PROVIDERS: PCP Nurse Practitioner; Visit Provider Obstetrics & Gynecology
DX: E28.2 Polycystic ovarian syndrome (principal); Z31.9 Encounter for procreative management, unspecified
CPT/HCPCS: 36415; 82670

== ENCOUNTER → 2023-08-14 23:41 | Outpatient (CLI) | payer OTHER, SELFPAY | PROVIDERS: PCP Nurse Practitioner; Visit Provider Nurse Practitioner | DX: R80.9 Proteinuria, unspecified (principal) | CPT/HCPCS: 87086 ==

== ENCOUNTER → 2023-09-02 19:55 | Outpatient (CLI) | payer OTHER, SELFPAY ==
[2023-09-04 08:17] LABS: Estradiol 59.4 pg/mL (.)
== END ==
PROVIDERS: PCP Obstetrics & Gynecology; Visit Provider Obstetrics & Gynecology
DX: E28.2 Polycystic ovarian syndrome (principal)
CPT/HCPCS: 82670

== ENCOUNTER → 2023-09-11 16:41 | Outpatient (CLI) | payer OTHER, SELFPAY ==
[2023-09-11 16:56] LABS: Basophils % 0.6 % (0.1-2.0); Eosinophils # 0.1 K/mm3 (0.0-0.4); Eosinophils % 1.8 % (0.1-12.0); Hematocrit 40.2 % (37.0-47.0); Hemoglobin 14.1 g/dL (12.2-16.2); Lymphocytes # 2.4 K/mm3 (0.7-4.5); Lymphocytes % 34.2 % (10-50); Mean Corpuscular HGB Conc 35.1 g/dL (31.8-35.4); Mean Corpuscular Hemoglobin 30.6 pg (27.0-31.2); Mean Corpuscular Volume 87.2 fl (81-99); Mean Platelet Volume 9.1 fl (7.4-10.4); Monocytes # 0.3 K/mm3 (0.1-1.0); Monocytes % 3.8 % (1.7-9.3); Neutrophils # 4.2 K/mm3 (1.8-7.8); Neutrophils % 59.6 % (37.0-80.0); Platelet Count 221 K/mm3 (142-424); Red Blood Count 4.61 M/mm3 (4.20-5.40); Red Cell Distribution Width 13.2 % (11.5-17.5)
[2023-09-13 09:12] LABS: Antistreptolysin O Ab 88.4 IU/mL (0.0-200.0); Cytomegalovirus (CMV) Ab, IgG >10.00 U/mL (0.00-0.59); Cytomegalovirus (CMV) Ab, IgM <30.0 AU/mL (0.0-29.9)
[2023-09-13 12:10] LABS: Lyme Ab CIA Negative (Negative)
[2023-09-15 15:09] LABS: EBV Ab VCA, IgM <36.0 U/mL (0.0-35.9); EBV Nuclear Antigen Ab, IgG <18.0 U/mL (0.0-17.9)
[2023-09-15 21:40] LABS: Lyme Interpretation Negative
== END ==
LOC: LAB 16:42
PROVIDERS: PCP Nurse Practitioner; Visit Provider Nurse Practitioner
DX: R59.0 Localized enlarged lymph nodes (principal)
CPT/HCPCS: 36415; 85025; 86060; 86618; 86644; 86645; 86664; 86665

== ENCOUNTER → 2023-09-15 15:32 | Outpatient (CLI) | payer OTHER, SELFPAY ==
--- NOTE | 2023-09-15 15:44 | US_ITS ---
FINAL REPORT CLINICAL HISTORY: left cervical LAD FINDINGS: Limited sonographic images of the soft tissue neck were obtained. The bilateral submandibular and bilateral parotid glands are normal. There is a 2.4 cm left neck soft tissue nodule consistent with an enlarged lymph node. Finding is nonspecific but likely reactive. IMPRESSION: Enlarged left neck lymph node, likely reactive. If symptoms persist, follow-up may be helpful. Reviewed, Interpreted and Dictated by Checo Wilson III, MD Transcribed by Yanni Mendez Authenticated and [facility]
== END ==
LOC: RAD 15:33
PROVIDERS: PCP Nurse Practitioner; Visit Provider Nurse Practitioner
DX: R59.0 Localized enlarged lymph nodes (principal)
CPT/HCPCS: 76536

== ENCOUNTER → 2023-09-22 19:45 | Outpatient (CLI) | payer OTHER, SELFPAY ==
[2023-09-22 21:42] LABS: HCG,Quantitative < 2 mIU/ml (0-5.42)
[2023-09-24 13:15] LABS: Progesterone 0.5 ng/mL (.)
== END ==
LOC: LAB.DROPOF 19:46
PROVIDERS: PCP Obstetrics & Gynecology; Visit Provider Obstetrics & Gynecology
DX: N91.2 Amenorrhea, unspecified (principal)
CPT/HCPCS: 84144; 84702

== ENCOUNTER → 2023-09-29 07:00 | Outpatient (CLI) | payer OTHER, SELFPAY ==
[2023-09-29 18:21] LABS: Adenovirus,PCR Not Detected (NotDetected); Coronavirus 19, PCR Not Detected (NotDetected); Coronavirus 229E Not Detected (NotDetected); Coronavirus NL63 Not Detected (NotDetected); Coronavirus OC43 Not Detected (NotDetected); Coronovirus HKU1,PCR Not Detected (NotDetected); Human Metapneumovirus Not Detected (NotDetected); Influenza A, PCR Not Detected (NotDetected); Influenza AH1, 2009 Not Detected (NotDetected); Influenza AH1, PCR Not Detected (NotDetected); Influenza AH3,PCR Not Detected (NotDetected); Influenza B, PCR Not Detected (NotDetected); Parainfluenza 1, PCR Not Detected (NotDetected); Parainfluenza 2, PCR Not Detected (NotDetected); Parainfluenza 3, PCR Not Detected (NotDetected); Parainfluenza 4, PCR Not Detected (NotDetected); Respiratory Syncytial Virus Not Detected (NotDetected); Rhinovirus/Enterovirus Not Detected (NotDetected)
== END ==
LOC: LAB.DROPOF 09-30 07:00
PROVIDERS: PCP Nurse Practitioner; Visit Provider Nurse Practitioner
DX: J06.9 Acute upper respiratory infection, unspecified (principal)
CPT/HCPCS: 87581; 87632; 87635; 87798

== ENCOUNTER 2023-11-03 09:19 | Outpatient (CLI) | payer OTHER, SELFPAY ==
--- NOTE | 2023-11-03 09:19 | CT_ITS ---
FINAL REPORT CLINICAL HISTORY: enlarged lymph node COMPARISON: None FINDINGS: CT SOFT TISSUES NECK: The nasopharynx, oropharynx, and hypopharynx are unremarkable in appearance. The tonsils are unremarkable. The thyroid gland is normal. There are a few small scattered bilateral cervical nodes, nonspecific. There is a subcutaneous nodule posteriorly overlying the right trapezius muscle, measuring 1 cm in size, best seen on image #61 of series #3. This may represent a small subcutaneous node. IMPRESSION: Few small scattered bilateral cervical nodes, nonspecific. Subcutaneous nodule overlying the right trapezius as described, possibly a small subcutaneous lymph node. Reviewed, Interpreted and Dictated by Klever Ryan MD Transcribed by Yanci Stein Authenticated and [facility]
--- NOTE | 2023-11-03 09:19 | FL_ITS ---
FINAL REPORT CLINICAL HISTORY: pcos, desire for 0.13 min DAP 87.16 FINDINGS: FLUOROSCOPY LESS THAN 1 HOUR HISTORY: Fluoroscopy guidance. Fluoroscopic guidance was provided for hysterosalpingography. 2 spot films were obtained. A total of 0.13 minutes of fluoroscopy time were used. Total DAP: 87.16 mGy IMPRESSION: As above. Reviewed, Interpreted and Dictated by Klever Ryan MD Transcribed by Sarah Beth Eden Authenticated and . [facility]
--- NOTE | 2023-11-03 10:25 | HMH.PROCNOTE ---
[facility] Procedure Note Date: 11/03/23 Time: 10:25 Procedure Note:: Patient was positioned in the dorsal lithotomy position. Speculum was inserted. Cervix and vagina was cleansed with Hibiclens swabs x 2. Tenaculum was placed on anterior lip of the cervix. 10 cc of contrast was drawn up into a syringe and attached to the Jesse HSG cannula. Contrast was flushed through cannula to remove air bubbles and ensure patency. Cannula was then inserted into the cervix. Fluoroscopy was initiated with 2 cc of contrast injected into the endometrial cavity. Fluoroscopy demonstrated contrast immediately flowing from endometrial cavity through bilateral fallopian tubes revealing patent left fallopian tube. History of right salpingectomy. Cannula was removed from the cervix. Tenaculum was removed from the cervix. Small amount of oozing noted from right tenaculum site. Pressure applied to tenaculum site with sponge stick. Reevaluation of tenaculum site demonstrated hemostasis. Speculum removed from the vagina. Patient tolerated the procedure well.
[2023-11-03] MEDS: IOPAMIDOL-370 (76%);100ML BOTTLE 10 ML IV (10:39)
== END 2023-11-03 23:59 ==
LOC: RAD 09:19
PROVIDERS: PCP Nurse Practitioner; Visit Provider Nurse Practitioner
DX: R59.1 Generalized enlarged lymph nodes (principal); E28.2 Polycystic ovarian syndrome; Z31.9 Encounter for procreative management, unspecified
CPT/HCPCS: 70490; 74740; Q9967

== ENCOUNTER 2023-11-25 19:59 | Outpatient (CLI) | payer OTHER, SELFPAY ==
[2023-11-25 19:01] LABS: HCG,Quantitative < 2 mIU/ml (0-5.42)
== END 2023-11-25 23:59 ==
LOC: LAB.DROPOF 19:59
PROVIDERS: PCP Obstetrics & Gynecology; Visit Provider Obstetrics & Gynecology
DX: N92.6 Irregular menstruation, unspecified (principal)
CPT/HCPCS: 84702

== ENCOUNTER 2024-01-22 15:03 | Outpatient (CLI) | payer OTHER, SELFPAY ==
--- NOTE | 2024-01-22 15:04 | US_ITS ---
FINAL REPORT CLINICAL HISTORY: RUQ pain FINDINGS: Sonographic images of the right upper quadrant were obtained. The pancreas is partially obscured.The liver has an unremarkable appearance.The gallbladder appears normal without evidence of gallstones.There is no evidence of biliary ductal dilatation.The common duct measures 2mm. Limited images of the right kidney are unremarkable. IMPRESSION: Unremarkable right upper quadrant ultrasound. Reviewed, Interpreted and Dictated by Checo Wilson III, MD Transcribed by Nica Dueñas Authenticated and . [facility]
== END 2024-01-22 23:59 | disposition home or self-care (01) ==
LOC: RAD 15:04
PROVIDERS: PCP Nurse Practitioner; Visit Provider Nurse Practitioner Family
DX: R10.11 Right upper quadrant pain (principal)
CPT/HCPCS: 76705

== ENCOUNTER 2024-02-01 12:09 | Emergency (ER) | payer OTHER, SELFPAY ==
[2024-02-01 12:10] VITALS: BP 107/48; PULSE 92; RESP 20; TEMP 36.9; O2SAT 100; BMI 20.3
[2024-02-01 12:20] VITALS: BMI 20.3
--- NOTE | 2024-02-01 12:21 | CT_ITS ---
PROCEDURE INFORMATION: Exam: CT Abdomen And Pelvis With Contrast Exam date and time: 02/01/2024 1:13 PM Age: 23 years old Clinical indication: Abdominal pain; Additional info: Rlq pain TECHNIQUE: Imaging protocol: Computed tomography of the abdomen and pelvis with contrast. Radiation optimization: All CT scans at this facility use at least one of these dose optimization techniques: automated exposure control; mA and/or kV adjustment per patient size (includes targeted exams where dose is matched to clinical indication); or iterative reconstruction. Contrast material: ISOVUE; Contrast volume: 75 ml; Contrast route: IV; COMPARISON: US GALLBLADDER 01/22/2024 3:04 PM FINDINGS: Limitations: Mild motion artifact. Liver: Normal. No mass. Gallbladder and bile ducts: Normal. No calcified stones. No ductal dilation. Pancreas: Normal. No ductal dilation. Spleen: Normal. No splenomegaly. Adrenal glands: Normal. No mass. Kidneys and ureters: Normal. No hydronephrosis. Stomach and bowel: Unremarkable. No obstruction. No mucosal thickening. Appendix: No evidence of appendicitis. Intraperitoneal space: Unremarkable. No free air. No significant fluid collection. Vasculature: Unremarkable. No abdominal aortic aneurysm. Lymph nodes: Unremarkable. No enlarged lymph nodes. Urinary bladder: Unremarkable as visualized. Reproductive: Unremarkable as visualized. Bones/joints: Unremarkable. No acute fracture. Soft tissues: Unremarkable. IMPRESSION: No acute findings.
--- NOTE | 2024-02-01 12:28 | ED_ITS ---
Discharge Plan Disposition Chief Complaint: Abdominal Pain Prescriptions Prescriptions: New ketorolac 10 mg tablet 10 mg PO Q8H Qty: 10 0RF Rx Instructions: maximum total duration of 5 days from all oral, intranasal, or parenteral formulations nitrofurantoin monohyd/m-cryst [Macrobid] 100 mg capsule 100 mg PO Q12H 7 Days Qty: 14 0RF Rx Instructions: must administer with a meal/food Continued fluticasone propionate 50 mcg/actuation spray,suspension 1 spray intranasal DAILY Qty: 16 2RF Rx Instructions: administer into each nostril mirtazapine 15 mg tablet 7.5 - 15 mg PO HS PRN (Reason: insomnia) Qty: 30 2RF progesterone micronized 100 mg capsule 100 mg vaginal DAILY Patient Comments: INSERT 1 CAPSULE INTO THE VAGINA DAILY. Classic 28 mg iron- 800 mcg tablet PO DAILY Zyrtec 10 mg capsule 10 mg PO DAILY PRN Ovidrel 250 mcg/0.5 mL syringe 250 mcg SQ ONCE Qty: 0.5 0RF ondansetron HCl 4 mg tablet 4 mg PO Q8H PRN (Reason: nausea and vomiting) Qty: 20 0RF famotidine 20 mg tablet 20 mg PO DAILY Qty: 30 2RF clomiphene citrate [Clomid] 50 mg tablet 50 mg PO DAILY 5 Days Qty: 5 0RF Rx Instructions: Take days 5-9 of menstrual cycle buspirone 15 mg tablet 15 mg PO TID Qty: 270 3RF metformin 1,000 mg tablet 500 mg PO TID sertraline 50 mg tablet 100 mg PO DAILY Referrals Follow up/Referrals: Shanna aMta APRN [Primary Care Provider] - See instructions Instructions Patient Instructions: DI for Acute Abdominal Pain Discharge ED Provider: Josafat Jewell General Adult HPI <Parish Sotelo MD - Last Filed: 02/01/24 16:45> General Chief complaint: Abdominal Pain Stated complaint: abd pain going down through legs Time Seen by Provider: 02/01/24 12:24 Mode of Arrival: Wheelchair Source of Information: Patient Limitations: No Limitations Description of Symptoms (Recalled from ER Triage Doc. by RN): r sided abdominal pain. hx of ectopic with tube removal. started bleeding vaginally this morning History of Present Illness HPI narrative: This patient presents for evaluation of right sided suprapubic abdominal pain Onset: Approximately 1030 this morning after waking up Location: Right lower quadrant, lateral to suprapubic area Duration: Since that time Characteristic: Dull, achy Alleviating/Aggrivating Factors: None identifiable Radiation: Down her right leg Timing: Constant Severity: Severe Associated symptoms: Vaginal bleeding, approximately 1 pad ROS: Denies any preceding trauma, denies any dysuria, frequency, vaginal discharge, history of similar symptoms. Does note history of ectopic status post removal of fallopian tube on ipsilateral side pain. Last menstrual period approximately 3 weeks ago. Please note that above description of symptoms, in this electronic medical record under categorization of recalled from ER triage doctor by RN are reflective of an initial nursing assessment, however, is not reflective of my full history and physical exam that was personally taken and clarified. Consequentially, this preceding description of symptoms, which may include the patient's categorized chief complaint in the EMR, do not reflect my personal clinical impression, and the ultimate description of history of present illness and patient stated complaints should be deferred to this section of the note. Unless stated otherwise or congruent with this section of the note, additional signs, symptoms, or incongruence should be interpreted as inaccurate with my clinical impression. Related Data Home Medications Medication Instructions Recorded Confirmed metformin 1,000 mg tablet 500 mg PO TID PCOS 07/10/22 01/26/24 progesterone micronized 100 mg 100 mg vaginal DAILY hormone 12/20/22 01/26/24 capsule replacement vits no.126-ferrous fum tab PO DAILY 03/31/23 01/26/24 28 mg iron-folic acid 800 mcg tablet (Classic ) cetirizine 10 mg capsule (Zyrtec) 10 mg PO DAILY PRN 05/28/23 01/26/24 sertraline 50 mg tablet 100 mg PO DAILY Depression 01/26/24 01/26/24 Previous Rx's Medication Instructions Recorded choriogonadotropin jose,humrec 250 250 mcg (0.5 mL) SQ ONCE #0.5 mL 07/31/23 mcg/0.5 mL subcutaneous syringe (Ovidrel) ondansetron HCl 4 mg tablet 4 mg PO Q8H PRN nausea and 09/29/23 vomiting #20 tabs fluticasone propionate 50 1 spray intranasal DAILY #16 grams 11/10/23 mcg/actuation nasal spray,suspension clomiphene citrate 50 mg tablet 50 mg PO DAILY 5 days #5 tabs 12/02/23 (Clomid) famotidine 20 mg tablet 20 mg PO DAILY #30 tabs 01/02/24 buspirone 15 mg tablet 15 mg PO TID #270 tabs 01/12/24 mirtazapine 15 mg tablet 7.5 - 15 mg (0.5 - 1 x 15 mg) PO 01/27/24 HS PRN insomnia #30 tabs ketorolac 10 mg tablet 10 mg PO Q8H #10 tabs 02/01/24 nitrofurantoin 100 mg PO Q12H 7 days #14 caps 02/01/24 monohydrate/macrocrystals 100 mg capsule (Macrobid) Allergies Allergy/AdvReac Type Severity Reaction Status Date / Time No Known Allergies Allergy Verified 01/26/24 11:42 [facility] <Parish Sotelo MD - Last Filed: 02/01/24 16:45> [facility] Disclaimer: The information contained in this section may have been updated after the patient was seen, as this information can be updated by other users. Medical History Lymphadenopathy Postauricular lymphadenopathy Posterior auricular pain of left ear Cervical lymphadenopathy Proteinuria Dysuria Ketonuria Migraine Patient desires Dysmenorrhea Irregular periods Screening for genetic disease carrier status 07/10/22 - [facility] carrier screen negative for 14 conditions tested including CF, Fragile X and SMA Recurrent loss Hx of ectopic Surgical History History of hysteroscopy History of bilateral fallopian tube excision Family History (Updated 01/26/24 @ 11:45 by Cheyenne Todd APRN) Mother FHx: mental illness Father FHx: mental illness Substance abuse Other No significant family history Social History Smoking Status: Never smoker alcohol intake: never substance use type: denies use current occupational status: unemployed Travel in the last 8 weeks: None <Parish Sotelo MD - Last Filed: 02/01/24 16:45> ROS Obtained: Yes other As per HPI Physical Exam <Parish Sotelo MD - Last Filed: 02/01/24 16:45> General General appearance: alert and in distress Head Head exam: atraumatic and normocephalic Eye Eye exam: Present normal appearance Neck Neck exam: Present normal inspection Chest Chest inspection: Present normal inspection and symmetric chest wall rise Respiratory Respiratory exam: Present normal lung sounds bilaterally; Absent respiratory distress Cardiovascular Cardiovascular exam: Present regular rate and normal rhythm Abdominal Exam Abdominal exam: Present soft, tenderness and guarding Abdominal tenderness: Present RLQ Neurological Exam Neurological exam: Present alert and oriented X3 Psychiatric Psychiatric exam: Present normal affect and normal mood Skin Skin exam: Present warm and dry Medical Decision Making <Parish Sotelo MD - Last Filed: 02/01/24 16:45> Medical Records Medical records reviewed: Yes I reviewed the patient's medical records. Oliver Inquiry Pt receiving controlled substance: No Vital Signs: 02/01/24 12:10 02/01/24 14:22 02/01/24 15:08 Temperature 98.4 F Temperature Source Oral Pulse Rate 85 79 Pulse Rate [Right] 92 H Respiratory Rate 20 16 Blood Pressure 109/64 L 113/60 Blood Pressure [Right Arm] 107/48 L Blood Pressure Mean 74 Blood Pressure Mean [Right Arm] 67 02 Sat by Pulse Oximetry 100 100 99 Oxygen Delivery Method Room Air Room Air 02/01/24 15:30 02/01/24 16:00 Temperature Temperature Source Pulse Rate 80 58 L Pulse Rate [Right] Respiratory Rate 16 Blood Pressure 107/67 L 101/68 L Blood Pressure [Right Arm] Blood Pressure Mean 73 Blood Pressure Mean [Right Arm] 02 Sat by Pulse Oximetry 99 97 Oxygen Delivery Method Room Air Lab Data Lab Results 02/01/24 12:20: WBC 10.7, RBC 4.98, Hgb 14.9, Hct 45.0, MCV 90.3, MCH 30.0, MCHC 33.2, RDW 14.1, Plt Count 210, MPV 9.2, Neut % (Auto) 73.6, Lymph % (Auto) 19.2, [place] % (Auto) 4.1, Eos % (Auto) 1.9, Baso % (Auto) 1.1, Neut # (Auto) 7.8, Lymph # (Auto) 2.1, [place] # (Auto) 0.4, Eos # (Auto) 0.2, Baso # (Auto) 0.1, Sodium 141, Potassium 3.4 L, Chloride 108 H, Carbon Dioxide 25, Anion Gap 11.4, BUN 10, Creatinine 0.80, Estimated Creat Clear 90, Estimated GFR 89, Est GFR ( Amer) 108, Glucose 104 H, Calcium 9.4, Total Bilirubin 1.0, AST 33, ALT 21, Alkaline Phosphatase 75, Total Protein 7.9, Albumin 4.7, Globulin 3.2, Albumin/Globulin Ratio 1.5, Lipase 117, HCG, Quant < 2, Urine Color Red, Urine Appearance Turbid, Urine pH 5.0, Ur Specific [place] 1.025, Urine Protein 3+, Urine Glucose (UA) Trace, Urine Ketones 1+, Urine Blood 3+, Urine Nitrate Positive, Urine Bilirubin 2+ A, Urine Urobilinogen 4.0, Ur Leukocyte Esterase 3+ A, Urine RBC Tntc, Urine WBC 3-5, Ur Squamous Epith Cells 3-5, Urine Bacteria 1+ 02/01/24 12:20 02/01/24 12:20 Orders (Tests/Meds): ED MEDICATIONS Generic Name Dose Route Start Last Admin Trade Name Fredelores PRN Reason Stop Dose Admin Sodium Chloride 10 ml 02/01/24 12:21 Sodium Chloride 0.9% 10ml Flush Syringe IV 03/02/24 12:20 NEEDED PRN Maintain IV Site Sodium Chloride 10 ml 02/01/24 13:13 02/01/24 13:13 Sodium Chloride 0.9% 10ml Syr (Rad Only) IV 03/02/24 13:12 10 ml NEEDED PRN Administration Maintain IV Site Discontinued Medications Generic Name Dose Route Start Last Admin Trade Name Fredelores PRN Reason Stop Dose Admin Lactated Ringer's 1,000 mls @ 999 mls/hr 02/01/24 12:26 02/01/24 12:55 Lactated Ringer's 1000 Ml Bag IV 02/01/24 13:26 999 mls/hr .Q1H1M ONE Administration Iopamidol 75 ml 02/01/24 13:13 02/01/24 13:13 Iopamidol-370 (76%);100ml Bottle IV 02/01/24 13:14 75 ml ONCE ONE Administration Ketorolac Tromethamine 30 mg 02/01/24 15:51 02/01/24 15:59 Ketorolac 30mg/Ml Vial IV 02/01/24 15:52 30 mg ONCE ONE Administration Morphine Sulfate 2 mg 02/01/24 12:26 02/01/24 12:55 Morphine 2mg/Ml Syringe IV 02/01/24 12:27 2 mg ONCE ONE Administration Morphine Sulfate 2 mg 02/01/24 14:22 02/01/24 14:25 Morphine 2mg/Ml Syringe IV 02/01/24 14:23 2 mg ONCE ONE Administration Ondansetron HCl 4 mg 02/01/24 12:37 02/01/24 12:55 Ondansetron 4mg/2ml Vial IV 02/01/24 12:38 4 mg ONCE ONE Administration ORDERS Category Date Time Status CT abdomen pelvis w con Stat Cat Scan 02/01/24 12:21 Completed US transvaginal Stat Exams 02/01/24 12:34 Taken Complete Blood Count Auto Diff Stat Lab 02/01/24 12:20 Completed Comprehensive Metabolic Panel Stat Lab 02/01/24 12:20 Completed HCG,Quantitative Stat Lab 02/01/24 12:20 Completed Lipase Stat Lab 02/01/24 12:20 Completed Urinalysis and Microscopic Stat Lab 02/01/24 12:20 Completed Urine Culture Stat Micro 02/01/24 12:20 Received Medical Decision Narrative: Patient with history and exam per above presenting for evaluation of abdominal pain Diagnoses considered include ovarian torsion, ectopic , cystitis, pyelonephritis, PID, ruptured ovarian cyst, ED workup and treatment included: ED MEDICATIONS Generic Name Dose Route Start Last Admin Trade Name Freq PRN Reason Stop Dose Admin Sodium Chloride 10 ml 02/01/24 12:21 Sodium Chloride 0.9% 10ml Flush Syringe IV 03/02/24 12:20 NEEDED PRN Maintain IV Site Sodium Chloride 10 ml 02/01/24 13:13 02/01/24 13:13 Sodium Chloride 0.9% 10ml Syr (Rad Only) IV 03/02/24 13:12 10 ml NEEDED PRN Administration Maintain IV Site Discontinued Medications Generic Name Dose Route Start Last Admin Trade Name Freq PRN Reason Stop Dose Admin Lactated Ringer's 1,000 mls @ 999 mls/hr 02/01/24 12:26 02/01/24 12:55 Lactated Ringer's 1000 Ml Bag IV 02/01/24 13:26 999 mls/hr .Q1H1M ONE Administration Iopamidol 75 ml 02/01/24 13:13 02/01/24 13:13 Iopamidol-370 (76%);100ml Bottle IV 02/01/24 13:14 75 ml ONCE ONE Administration Ketorolac Tromethamine 30 mg 02/01/24 15:51 02/01/24 15:59 Ketorolac 30mg/Ml Vial IV 02/01/24 15:52 30 mg ONCE ONE Administration Morphine Sulfate 2 mg 02/01/24 12:26 02/01/24 12:55 Morphine 2mg/Ml Syringe IV 02/01/24 12:27 2 mg ONCE ONE Administration Morphine Sulfate 2 mg 02/01/24 14:22 02/01/24 14:25 Morphine 2mg/Ml Syringe IV 02/01/24 14:23 2 mg ONCE ONE Administration Ondansetron HCl 4 mg 02/01/24 12:37 02/01/24 12:55 Ondansetron 4mg/2ml Vial IV 02/01/24 12:38 4 mg ONCE ONE Administration ORDERS Category Date Time Status CT abdomen pelvis w con Stat Cat Scan 02/01/24 12:21 Completed US transvaginal Stat Exams 02/01/24 12:34 Taken Complete Blood Count Auto Diff Stat Lab 02/01/24 12:20 Completed Comprehensive Metabolic Panel Stat Lab 02/01/24 12:20 Completed HCG,Quantitative Stat Lab 02/01/24 12:20 Completed Lipase Stat Lab 02/01/24 12:20 Completed Urinalysis and Microscopic Stat Lab 02/01/24 12:20 Completed Urine Culture Stat Micro 02/01/24 12:20 Received Labs were independently interpreted by me, significant for test negative, urinalysis with hematuria, pyuria Imaging was independently visualized and interpreted by me, significant for no overt evidence of. ovarian torsion or acute surgical pathology Please refer to radiology report for full details. Upon reassessment patient continues to complain of a great deal of pain. She has required 2 rounds of morphine for treatment of her pain and still is uncomfortable. Given that she denies for me any preceding infectious symptoms, denies any history of urolithiasis, and was in her normal state of health prior to abrupt onset of severe abdominal pain in the setting of history of ectopic , gynecology was consulted for evaluation for consideration of ongoing occult or intermittent ovarian torsion. Recommendations pending at this time Josafat Jewell: Upon assumption of care patient is hemodynamically stable. Patient was evaluated by [employer] Dr. Valdez, patient is appropriate for outpatient management at this time will be discharged after given a shot of Toradol, prescription for antibiotics. Patient was given return precautions and will follow-up with [facility] next week. <Josafat Jewell MD - Last Filed: 02/01/24 16:39> Vital Signs: 02/01/24 12:10 02/01/24 14:22 02/01/24 15:08 Temperature 98.4 F Temperature Source Oral Pulse Rate 85 79 Pulse Rate [Right] 92 H Respiratory Rate 20 16 Blood Pressure 109/64 L 113/60 Blood Pressure [Right Arm] 107/48 L Blood Pressure Mean 74 Blood Pressure Mean [Right Arm] 67 02 Sat by Pulse Oximetry 100 100 99 Oxygen Delivery Method Room Air Room Air 02/01/24 15:30 02/01/24 16:00 Temperature Temperature Source Pulse Rate 80 58 L Pulse Rate [Right] Respiratory Rate 16 Blood Pressure 107/67 L 101/68 L Blood Pressure [Right Arm] Blood Pressure Mean 73 Blood Pressure Mean [Right Arm] 02 Sat by Pulse Oximetry 99 97 Oxygen Delivery Method Room Air Lab Data Lab Results 02/01/24 12:20: WBC 10.7, RBC 4.98, Hgb 14.9, Hct 45.0, MCV 90.3, MCH 30.0, MCHC 33.2, RDW 14.1, Plt Count 210, MPV 9.2, Neut % (Auto) 73.6, Lymph % (Auto) 19.2, [place] % (Auto) 4.1, Eos % (Auto) 1.9, Baso % (Auto) 1.1, Neut # (Auto) 7.8, Lymph # (Auto) 2.1, [place] # (Auto) 0.4, Eos # (Auto) 0.2, Baso # (Auto) 0.1, Sodium 141, Potassium 3.4 L, Chloride 108 H, Carbon Dioxide 25, Anion Gap 11.4, BUN 10, Creatinine 0.80, Estimated Creat Clear 90, Estimated GFR 89, Est GFR ( Amer) 108, Glucose 104 H, Calcium 9.4, Total Bilirubin 1.0, AST 33, ALT 21, Alkaline Phosphatase 75, Total Protein 7.9, Albumin 4.7, Globulin 3.2, Albumin/Globulin Ratio 1.5, Lipase 117, HCG, Quant < 2, Urine Color Red, Urine Appearance Turbid, Urine pH 5.0, Ur Specific [place] 1.025, Urine Protein 3+, Urine Glucose (UA) Trace, Urine Ketones 1+, Urine Blood 3+, Urine Nitrate Positive, Urine Bilirubin 2+ A, Urine Urobilinogen 4.0, Ur Leukocyte Esterase 3+ A, Urine RBC Tntc, Urine WBC 3-5, Ur Squamous Epith Cells 3-5, Urine Bacteria 1+ Orders (Tests/Meds): ED MEDICATIONS Generic Name Dose Route Start Last Admin Trade Name Freq PRN Reason Stop Dose Admin Sodium Chloride 10 ml 02/01/24 12:21 Sodium Chloride 0.9% 10ml Flush Syringe IV 03/02/24 12:20 NEEDED PRN Maintain IV Site Sodium Chloride 10 ml 02/01/24 13:13 02/01/24 13:13 Sodium Chloride 0.9% 10ml Syr (Rad Only) IV 03/02/24 13:12 10 ml NEEDED PRN Administration Maintain IV Site Discontinued Medications Generic Name Dose Route Start Last Admin Trade Name Freq PRN Reason Stop Dose Admin Lactated Ringer's 1,000 mls @ 999 mls/hr 02/01/24 12:26 02/01/24 12:55 Lactated Ringer's 1000 Ml Bag IV 02/01/24 13:26 999 mls/hr .Q1H1M ONE Administration Iopamidol 75 ml 02/01/24 13:13 02/01/24 13:13 Iopamidol-370 (76%);100ml Bottle IV 02/01/24 13:14 75 ml ONCE ONE Administration Ketorolac Tromethamine 30 mg 02/01/24 15:51 02/01/24 15:59 Ketorolac 30mg/Ml Vial IV 02/01/24 15:52 30 mg ONCE ONE Administration Morphine Sulfate 2 mg 02/01/24 12:26 02/01/24 12:55 Morphine 2mg/Ml Syringe IV 02/01/24 12:27 2 mg ONCE ONE Administration Morphine Sulfate 2 mg 02/01/24 14:22 02/01/24 14:25 Morphine 2mg/Ml Syringe IV 02/01/24 14:23 2 mg ONCE ONE Administration Ondansetron HCl 4 mg 02/01/24 12:37 02/01/24 12:55 Ondansetron 4mg/2ml Vial IV 02/01/24 12:38 4 mg ONCE ONE Administration ORDERS Category Date Time Status CT abdomen pelvis w con Stat Cat Scan 02/01/24 12:21 Completed US transvaginal Stat Exams 02/01/24 12:34 Taken Complete Blood Count Auto Diff Stat Lab 02/01/24 12:20 Completed Comprehensive Metabolic Panel Stat Lab 02/01/24 12:20 Completed HCG,Quantitative Stat Lab 02/01/24 12:20 Completed Lipase Stat Lab 02/01/24 12:20 Completed Urinalysis and Microscopic Stat Lab 02/01/24 12:20 Completed Urine Culture Stat Micro 02/01/24 12:20 Received Medical Decision Narrative: Patient with history and exam per above presenting for evaluation of Diagnoses considered include ED workup and treatment included: Labs were independently interpreted by me, significant for Imaging was independently visualized and interpreted by me, significant for . Please refer to radiology report for full details. My clinical impression at this time is most consistent with I discussed my clinical impression with patient and answered all questions. At this time, the evidence for any other entities in the differential is insufficient to warrant any further testing or ED observation. This was explained to the patient. The patient was advised that persistent or worsening symptoms require further evaluation. I confirmed the patient's understanding of this discussion. Josafat Jewell: Upon assumption of care patient is hemodynamically stable. Patient was evaluated by [employer] Dr. Valdez, patient is appropriate for outpatient management at this time will be discharged after given a shot of Toradol, prescription for antibiotics. Patient was given return precautions and will follow-up with [facility] next week. Critical Care <Parish Sotelo MD - Last Filed: 02/01/24 16:45> Critical Care Time Critical Care Time: No
[2024-02-01 12:31] LABS: Microscopic, Urine URINE MICROSCOPIC (MICROSCOPIC)
[2024-02-01 12:33] LABS: Appearance,Urine TURBID (Clear); Blood, Urine 3+ (Negative); Color,Urine RED (Yellow); Glucose,Urine (UA) TRACE (Negative); Ketones,Urine 1+ (Negative); Leukocyte Esterase,Urine 3+ (Negative); Nitrate,Urine POSITIVE (Negative); Protein,Urine 3+ (Negative); Specific Gravity, Urine 1.025 (1.005-1.030)
[2024-02-01 12:34] LABS: Basophils # 0.1 K/mm3 (0-0.2); Basophils % 1.1 % (0.1-2.0); Eosinophils # 0.2 K/mm3 (0.0-0.4); Eosinophils % 1.9 % (0.1-12.0); Hemoglobin 14.9 g/dL (12.2-16.2); Lymphocytes # 2.1 K/mm3 (0.7-4.5); Lymphocytes % 19.2 % (10-50); Mean Corpuscular HGB Conc 33.2 g/dL (31.8-35.4); Mean Corpuscular Volume 90.3 fl (81-99); Mean Platelet Volume 9.2 fl (7.4-10.4); Monocytes # 0.4 K/mm3 (0.1-1.0); Monocytes % 4.1 % (1.7-9.3); Neutrophils # 7.8 K/mm3 (1.8-7.8); Neutrophils % 73.6 % (37.0-80.0); Platelet Count 210 K/mm3 (142-424); Red Blood Count 4.98 M/mm3 (4.20-5.40); Red Cell Distribution Width 14.1 % (11.5-17.5); White Blood Count 10.7 K/mm3 (4.8-10.8)
--- NOTE | 2024-02-01 12:34 | US_ITS ---
PROCEDURE INFORMATION: Exam: US Duplex Artery or Vein of the Abdominal and/or Reproductive Organs, Limited Ovaries Exam date and time: 02/01/2024 1:25 PM Clinical indication: Pelvic pain; Prior surgery; Surgery date: 6+ months; Surgery type: RT tube removed due to ectopic x 1 yr; Additional info: Concern for ovarian torsion TECHNIQUE: Imaging protocol: Real-time duplex ultrasound scan of the arterial or venous flow with jorge scale, color Doppler flow and spectral waveform analysis with image documentation. Limited duplex exam focused on the ovaries. Duplex exam was performed to evaluate for torsion and other vascular conditions. COMPARISON: No relevant prior studies available. FINDINGS: Right ovary/adnexa: Normal duplex of the ovary. Normal Doppler waveforms and color flow. No evidence of ovarian torsion. Left ovary/adnexa: Normal duplex of the ovary. Normal Doppler waveforms and color flow. No evidence of ovarian torsion. IMPRESSION: Normal duplex of the ovaries. No evidence of ovarian torsion. PROCEDURE INFORMATION: Exam: US Pelvis, Transvaginal Exam date and time: 02/01/2024 1:25 PM Age: 23 years old Clinical indication: Pelvic pain; Prior surgery; Surgery date: 6+ months; Surgery type: RT tube removed due to ectopic x 1 yr; Additional info: Concern for ovarian torsion LABS AND CLINICAL REPORTS: Last menstrual period start date: 01/12/2024 TECHNIQUE: Imaging protocol: Real-time transvaginal pelvic ultrasound with image documentation. Transvaginal imaging was used for better evaluation of the endometrium, adnexa, and/or cervix. COMPARISON: US OB TRANSVAGINAL 05/19/2022 10:37 AM FINDINGS: Uterus: Uterus measures 8.51 cm x 5.03 cm x 3.65 cm. Right ovary/adnexa: Right ovary measures 4.32 cm x 2.55 cm x 1.88 cm. Right ovarian volume is 10.84 mL. Multiple small follicles. Left ovary/adnexa: Left ovary measures 3.63 cm x 2.14 cm x 1.7 cm. Left ovarian volume is 6.91 mL. Multiple small follicles. Intraperitoneal space: No free fluid. IMPRESSION: Multiple small ovarian follicles bilaterally. Borderline increased right ovarian volume. The appearance may indicate changes of polycystic ovaries.
--- NOTE | 2024-02-01 12:35 | PC.NURSE ---
MD @ bedside. 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
[2024-02-01 12:36] LABS: Bacteria,Urine 1+ /lpf; Bilirubin,Urine 2+ (Negative); RBC,Urine TNTC #/hpf (0-3)
[2024-02-01 12:37] LABS: Chloride 108 mmol/L (98-107); Sodium 141 mmol/L (136-145)
[2024-02-01 12:38] LABS: Potassium 3.4 mmoL/L (3.5-5.1)
[2024-02-01 12:40] LABS: Alanine Aminotransferase 21 U/L (12-78); Albumin Level 4.7 g/dl (3.5-5.0); Albumin/Globulin Ratio 1.5 (1.1-1.8); Alkaline Phosphatase 75 U/L (38-126); Anion Gap 11.4 mEq/L (5-15); Aspartate Amino Transferase 33 U/L (14-36); Blood Urea Nitrogen 10 mg/dl (7-17); Carbon Dioxide 25 mmol/L (22.0-30.0); Creatinine Clearance Estimated 90 mL/min (50-200); Estimated Glomerular Filt Rate 89 ml/min (>60); GFR (African American) 108 ML/MIN (>60); Globulin 3.2 g/dL (1.3-3.2); Glucose 104 mg/dl (74-100); Lipase 117 U/L (23-300); Total Protein,Serum 7.9 g/dl (6.3-8.2)
[2024-02-01 12:41] LABS: Calcium 9.4 mg/dl (8.4-10.2)
[2024-02-01] MEDS: ONDANSETRON 4MG/2ML VIAL 4 MG IV (12:55)
[2024-02-01] MEDS: MORPHINE 2MG/ML SYRINGE 2 MG IV ×2 (12:55→14:25)
[2024-02-01] MEDS: LACTATED RINGERS 1000ML 1,000 ML 999 ML IV (12:55)
[2024-02-01 12:59] LABS: HCG,Quantitative < 2 mIU/ml (0-5.42)
--- NOTE | 2024-02-01 13:09 | PC.NURSE ---
pt with radiology
[2024-02-01] MEDS: IOPAMIDOL-370 (76%);100ML BOTTLE 75 ML IV (13:13)
[2024-02-01] MEDS: SODIUM CHLORIDE 0.9% 10ML SYR (RAD ONLY) 10 ML IV (13:13)
--- NOTE | 2024-02-01 13:18 | PC.NURSE ---
PT RETURNED FROM RAD
--- NOTE | 2024-02-01 13:39 | PC.NURSE ---
PT GONE FOR TRANS VAG US
--- NOTE | 2024-02-01 13:45 | PC.NURSE ---
PT RETURNED FROM US
[2024-02-01 14:22] VITALS: BP 109/64; PULSE 85; O2SAT 100
--- NOTE | 2024-02-01 14:28 | PC.NURSE ---
DR WALSH AT BEDSIDE TO REEVALUATE PT
--- NOTE | 2024-02-01 14:33 | PC.NURSE ---
DR DENIA GOVEA
--- NOTE | 2024-02-01 14:33 | PC.NURSE ---
DR WALSH SPEAKING WITH DR Domi LOZA
[2024-02-01 15:08] VITALS: BP 113/60; PULSE 79; RESP 16; O2SAT 99
[2024-02-01 15:30] VITALS: BP 107/67; PULSE 80; RESP 16; O2SAT 99
[2024-02-01] MEDS: KETOROLAC 30MG/ML VIAL 30 MG IV (15:59)
[2024-02-01 16:00] VITALS: BP 101/68; PULSE 58; O2SAT 97
--- NOTE | 2024-02-01 16:01 | EXP.GYNCONS ---
History of Present Illness *Admission Date: 02/01/24 *Reason for visit:: Abdominal pain *History of present illness: Kraig Ham is a pleasant 23yr old who presented to the ED secondary to severe abdominal pain that was radiating down her leg, and was so severe it was difficult to stand. She had one episode of emesis secondary to pain. Kraig states that the pain started this morning and was very severe. Reports that she has felt this pain in the past and it is primarily cyclical with the beginning of menses. Patient states that it is a little early for her to have her menstrual cycle, however today is day 30 of her menstrual cycle from her recorded first day of her last menstrual period of 01/03/2024 last month. Reports she had scant bleeding this morning and heavy bleeding on arrival to ED today. Patient states that this pain has been ongoing, typically once a month since her ectopic and salpingectomy in 2021. Reports that most of the time the pain is similar in intensity, however today she came to the emergency room because there is typically no nausea and vomiting or radiation of the pain. She does say that the intensity is may be slightly worse but it has been this bad before. The last time that it was this intense was probably about 3 to 4 months ago. States that typically this pain is resolved with a hot shower or heating pad. Ibuprofen, acetaminophen, and Midol are only minimally helpful in pain improvement. Reports menarche was at 14 and that she had normal cramps until the surgery. Previously she has used Depo and OCPs for contraception. Has not used any contraception since about the age of 17. She has not eaten today. She still has her appendix. Reports daily diarrhea. Reports increased bladder frequency for the last week. Denies dysuria. Reports she still has her appendix. I was consulted by the ED physician for suspected ovarian torsion. When I evaluated the patient she was in minimal pain. She had had a dose of morphine about 1 hour prior to my evaluation, per chart review 2 mg administered at 1425. Upon review and independent interpretation of her transvaginal ultrasound there is very minimal concern for ovarian torsion. On ultrasound her right ovary measured 4.3 x 2.6 x 1.9 cm with a volume of 10.8 mL. Her left ovary measured 3.6 x 2.1 x 1.7 cm with a volume of 6.9 mL. There was flow to bilateral ovaries noted. There was minimal free fluid in the cul-de-sac noted. OB history: -Patient admitted to 2 SABs and 1 ectopic in 2021. On chart review it appears she had a second ectopic that was managed with methotrexate. -Patient is currently on round 3 of Clomid and most recently took 100 mg of Clomid. Her serum beta-hCG level is negative today [facility] Disclaimer: The information contained in this section may have been updated after the patient was seen, as this information can be updated by other users. Medical History Lymphadenopathy Postauricular lymphadenopathy Posterior auricular pain of left ear Cervical lymphadenopathy Proteinuria Dysuria Ketonuria Migraine Patient desires Dysmenorrhea Irregular periods Screening for genetic disease carrier status 07/10/22 - [facility] carrier screen negative for 14 conditions tested including CF, Fragile X and SMA Recurrent loss Hx of ectopic Surgical History History of hysteroscopy History of bilateral fallopian tube excision Family History (Updated 01/26/24 @ 11:45 by Cheyenne Todd APRN) Mother FHx: mental illness Father FHx: mental illness Substance abuse Other No significant family history Social History Smoking Status: Never smoker alcohol intake: never substance use type: denies use current occupational status: unemployed Travel in the last 8 weeks: None Review of Systems Review of Systems Review of systems (narrative): Review of Systems Constitutional: Denies fever, chills, and sweats Eyes: Denies vision change/ pain Respiratory: Denies cough and shortness of breath Cardiovascular: Denies chest pain and lightheadedness Gastrointestinal: Admits abdominal pain, nausea, vomiting. Genitourinary: Denies dysuria and incontinence. Endorses frequency Musculoskeletal: Denies shoulder pain and back pain. Endorses leg pain that radiates from her abdominal pain Neurological: Denies change in speech or headaches Meds Home Medications and Allergies Home Medications Medication Instructions Recorded Confirmed Type metformin 1,000 mg tablet 500 mg PO TID PCOS 07/10/22 01/26/24 History progesterone micronized 100 mg 100 mg vaginal DAILY hormone 12/20/22 01/26/24 History capsule replacement vits no.126-ferrous fum tab PO DAILY 03/31/23 01/26/24 History 28 mg iron-folic acid 800 mcg tablet (Classic ) cetirizine 10 mg capsule (Zyrtec) 10 mg PO DAILY PRN 05/28/23 01/26/24 History choriogonadotropin jose,humrec 250 250 mcg (0.5 mL) SQ ONCE #0.5 mL 07/31/23 01/26/24 Rx mcg/0.5 mL subcutaneous syringe (Ovidrel) ondansetron HCl 4 mg tablet 4 mg PO Q8H PRN nausea and 09/29/23 01/26/24 Rx vomiting #20 tabs fluticasone propionate 50 1 spray intranasal DAILY #16 grams 11/10/23 01/26/24 Rx mcg/actuation nasal spray,suspension clomiphene citrate 50 mg tablet 50 mg PO DAILY 5 days #5 tabs 12/02/23 01/26/24 Rx (Clomid) famotidine 20 mg tablet 20 mg PO DAILY #30 tabs 01/02/24 01/26/24 Rx buspirone 15 mg tablet 15 mg PO TID #270 tabs 01/12/24 01/26/24 Rx sertraline 50 mg tablet 100 mg PO DAILY Depression 01/26/24 01/26/24 History mirtazapine 15 mg tablet 7.5 - 15 mg (0.5 - 1 x 15 mg) PO 01/27/24 01/27/24 Rx HS PRN insomnia #30 tabs ketorolac 10 mg tablet 10 mg PO Q8H #10 tabs 02/01/24 Rx nitrofurantoin 100 mg PO Q12H 7 days #14 caps 02/01/24 Rx monohydrate/macrocrystals 100 mg capsule (Macrobid) New Prescriptions to Start Prescriptions: ketorolac Suad Valdez nitrofurantoin monohyd/m-cryst [Macrobid] Suad Valdez Allergies Allergy/AdvReac Type Severity Reaction Status Date / Time No Known Allergies Allergy Verified 01/26/24 11:42 Exam (Inpt) Vital signs and Labs for Last 24 Hours: Temp Pulse Resp BP Pulse Ox O2 Del Method 98.4 F 80 16 107/67 L 99 Room Air 02/01/24 12:10 02/01/24 15:30 02/01/24 15:30 02/01/24 15:30 02/01/24 15:30 02/01/24 14:22 Laboratory Results - last 24 hr 02/01/24 12:20: WBC 10.7, RBC 4.98, Hgb 14.9, Hct 45.0, MCV 90.3, MCH 30.0, MCHC 33.2, RDW 14.1, Plt Count 210, MPV 9.2, Neut % (Auto) 73.6, Lymph % (Auto) 19.2, Bacon % (Auto) 4.1, Eos % (Auto) 1.9, Baso % (Auto) 1.1, Neut # (Auto) 7.8, Lymph # (Auto) 2.1, Bacon # (Auto) 0.4, Eos # (Auto) 0.2, Baso # (Auto) 0.1, Sodium 141, Potassium 3.4 L, Chloride 108 H, Carbon Dioxide 25, Anion Gap 11.4, BUN 10, Creatinine 0.80, Estimated Creat Clear 90, Estimated GFR 89, Est GFR ( Amer) 108, Glucose 104 H, Calcium 9.4, Total Bilirubin 1.0, AST 33, ALT 21, Alkaline Phosphatase 75, Total Protein 7.9, Albumin 4.7, Globulin 3.2, Albumin/Globulin Ratio 1.5, Lipase 117, HCG, Quant < 2, Urine Color Red, Urine Appearance Turbid, Urine pH 5.0, Ur Specific [place] 1.025, Urine Protein 3+, Urine Glucose (UA) Trace, Urine Ketones 1+, Urine Blood 3+, Urine Nitrate Positive, Urine Bilirubin 2+ A, Urine Urobilinogen 4.0, Ur Leukocyte Esterase 3+ A, Urine RBC Tntc, Urine WBC 3-5, Ur Squamous Epith Cells 3-5, Urine Bacteria 1+ I & O for Labs for Last 24 Hours: Intake & Output 01/29/24 01/30/24 01/31/24 02/01/24 23:59 23:59 23:59 23:59 Weight 115 lb HEENT Head: Present normocephalic and atraumatic Respiratory: Present CTA bilaterally, normal respiratory effort, able to speak in complete sentences and symmetric chest movement; Absent accessory muscle use, respiratory distress or wheezes Cardiac: Present Reg Rate and Rhythm and S1/S2 GI: Present soft, tenderness (mild, lower quadrant) and normal bowel sounds; Absent distention, guarding, rebound or rigidity Extremities: Present normal inspection and full ROM; Absent tenderness Skin: Present intact; Absent cyanosis, erythema, pallor, mottling or petechiae Assessment and Plan *Assessment and plan (1) Endometriosis: Status: Acute Category: Medical Code(s): N80.9 - Endometriosis, unspecified (2) UTI (urinary tract infection): Status: Acute Category: Medical Code(s): N39.0 - Urinary tract infection, site not specified Plan #Endometriosis -We discussed the diagnosis of endometriosis secondary to the severe pelvic pain that she has that is cyclic in nature. Patient states she was previously diagnosed with PCOS. I discussed the clinical nature of PCOS: The patient has regular monthly menses, denies any features of hirsutism, denies any symptoms of excess androgen, and has very low ovarian volumes not indicative of PCOS. Given these reasons and that PCOS typically is not associated with this severe of pain with monthly menses it is unlikely that PCOS is the problem for today's visit. We discussed the cyclical pain of endometriosis and how that pain would be lessened during use of contraception. -Patient will be given IM Toradol prior to discharge -Patient will be sent a prescription for p.o. Toradol for immediate pain relief for the next few days -Patient is currently undergoing ovulation induction with Clomid and will call her primary OBSTETRICS TECH on Friday to schedule follow-up appointment. #Urinary tract infection -Patient has no known drug allergies and will be sent home with antibiotics for UTI -Hospital culture ordered. Explained if it was resistant we would have to treat with another antibiotic in 7days in the culture returned -Desires Rx to [facility] in [place] #Abdominal pain -TVUS and CT scan reviewed. No signs of processing engineer pathology. No ovarian cysts. No free fluid. No signs of torsion or appendicitis.
[2024-02-01 16:42] VITALS: BP 113/67; PULSE 80; RESP 18; TEMP 36.9; O2SAT 99
--- NOTE | 2024-02-03 18:15 | PC.NURSE ---
urine results discussed with , pt dc with macrobid, ntd
== END 2024-02-01 16:46 | disposition home or self-care (01) ==
PROVIDERS: Emergency Medicine; Emergency Provider Emergency Medicine; PCP Nurse Practitioner
DX: N39.0 Urinary tract infection, site not specified; R10.31 Right lower quadrant pain; B96.89 Other specified bacterial agents as the cause of diseases classified elsewhere; N94.6 Dysmenorrhea, unspecified
CPT/HCPCS: 74177; 76830; 80053; 81001; 83690; 84702; 85025; 87086; 96361; 96374; 96375; 96376; 99285; J2405; Q9967

== ENCOUNTER 2024-02-11 15:27 | Outpatient (CLI) | payer OTHER, SELFPAY ==
--- NOTE | 2024-02-11 15:27 | CT_ITS ---
FINAL REPORT CLINICAL HISTORY: .pain / swelling in neck COMPARISON: 11/03/2023 FINDINGS: CT NECK SOFT TISSUE: The exam is limited without intravenous contrast. No obvious adenopathy is noted in the cervical soft tissues. The nasopharynx, hypopharynx, and larynx are unremarkable in appearance. There is a 10 mm subcutaneous nodule overlying the right trapezius which is stable when compared to the prior exam. No new CT abnormalities are noted. IMPRESSION: Exam limited without intravenous contrast. Findings stable when compared to the prior CT of October 2023. Reviewed, Interpreted and Dictated by Luciano Hogue MD Transcribed by Yanci Stein Authenticated and [facility]
== END 2024-02-11 23:59 | disposition home or self-care (01) ==
LOC: RAD 15:27
PROVIDERS: PCP Nurse Practitioner; Visit Provider Nurse Practitioner
DX: R59.1 Generalized enlarged lymph nodes (principal)
CPT/HCPCS: 70490

== ENCOUNTER 2024-02-12 18:00 | Outpatient (CLI) | payer OTHER, SELFPAY | END 2024-02-12 23:59 | disposition home or self-care (01) | LOC: LAB.DROPOF 02-13 13:56 | PROVIDERS: PCP Nurse Practitioner; Visit Provider Nurse Practitioner | DX: R10.2 Pelvic and perineal pain (principal) | CPT/HCPCS: 87086 ==

== ENCOUNTER 2024-03-15 10:42 | Outpatient (CLI) | payer OTHER, SELFPAY ==
--- NOTE | 2024-03-15 10:43 | NM_ITS ---
FINAL REPORT CLINICAL HISTORY: RUQ Pain, RUQ US WNL 10:50AM 7.92 MCI TC CHOLETEC 1.1 MCG CCK MILD PAIN WITH CCK COMPARISON: None FINDINGS: Sequential anterior projection images of the abdomen were obtained after the intravenous injection of 7.92 mCi technetium 99m Choletec. There is normal uptake of radiotracer by the liver. The bile ducts are visualized by 10 minutes. Gallbladder activity is seen by 10 minutes. Bowel activity is noted by 15 minutes. After 1 hour, 1.1 ?g of CCK was injected intravenously for calculation of gallbladder ejection fraction. The gallbladder ejection fraction is 44%, which is within normal limits. IMPRESSION: No evidence of cystic duct or bile duct obstruction. Normal gallbladder ejection fraction of 44%. Reviewed, Interpreted and Dictated by Checo Wilson III, MD Transcribed by Yanci Stein Authenticated and [facility]
[2024-03-15] MEDS: SINCALIDE IV (12:33)
[2024-03-15] MEDS: ISOTOPE CHOLETECH;1 DOSE (UP TO 15 MCI) IV (12:33)
[2024-03-15] MEDS: SODIUM CHLORIDE 0.9% IV (12:33)
[2024-03-15] MEDS: SODIUM CHLORIDE 0.9% 10ML SYR (RAD ONLY) 10 ML IV (12:33)
== END 2024-03-15 23:59 | disposition home or self-care (01) ==
LOC: RAD 10:43
PROVIDERS: PCP Nurse Practitioner; Visit Provider Nurse Practitioner Family
DX: R10.11 Right upper quadrant pain (principal)
CPT/HCPCS: 78227; A9537; J2805

== ENCOUNTER 2024-04-05 08:42 | Outpatient (CLI) | payer OTHER, SELFPAY ==
[2024-04-05 18:00] LABS: Basophils # 0.1 K/mm3 (0-0.2); Eosinophils # 0.1 K/mm3 (0.0-0.4); Eosinophils % 1.2 % (0.1-12.0); Hematocrit 40.3 % (37.0-47.0); Lymphocytes # 1.4 K/mm3 (0.7-4.5); Lymphocytes % 24.2 % (10-50); Mean Corpuscular HGB Conc 32.2 g/dL (31.8-35.4); Mean Corpuscular Hemoglobin 29.6 pg (27.0-31.2); Mean Platelet Volume 10.6 fl (7.4-10.4); Monocytes # 0.3 K/mm3 (0.1-1.0); Monocytes % 5.1 % (1.7-9.3); Neutrophils # 3.8 K/mm3 (1.8-7.8); Neutrophils % 68.5 % (37.0-80.0); Platelet Count 211 K/mm3 (142-424); Red Blood Count 4.38 M/mm3 (4.20-5.40); Red Cell Distribution Width 14.1 % (11.5-17.5); White Blood Count 5.6 K/mm3 (4.8-10.8)
[2024-04-05 19:23] LABS: Alanine Aminotransferase 15 U/L (12-78); Albumin Level 3.9 g/dl (3.5-5.0); Albumin/Globulin Ratio 1.4 (1.1-1.8); Alkaline Phosphatase 54 U/L (38-126); Anion Gap 14.2 mEq/L (5-15); Aspartate Amino Transferase 25 U/L (14-36); Bilirubin,Total 1.1 mg/dl (0.2-1.3); Blood Urea Nitrogen 16 mg/dl (7-17); Calcium 8.8 mg/dl (8.4-10.2); Carbon Dioxide 23 mmol/L (22.0-30.0); Chloride 104 mmol/L (98-107); Estimated Glomerular Filt Rate 88 ml/min (>60); GFR (African American) 107 ML/MIN (>60); Globulin 2.8 g/dL (1.3-3.2); Glucose 89 mg/dl (74-100); Potassium 4.2 mmoL/L (3.5-5.1); Sodium 137 mmol/L (136-145); Total Protein,Serum 6.7 g/dl (6.3-8.2)
[2024-04-05 19:46] LABS: 25-OH Vitamin D, Total 49.5 ng/mL (30-100)
[2024-04-05 19:51] LABS: Hemoglobin A1C 4.9 % (4.0-6.0)
[2024-04-05 19:54] LABS: Thyroid Stimulating Hormone 0.81 uIU/mL (0.465-4.68)
[2024-04-05 20:13] LABS: Vitamin B12 459 pg/mL (239-931)
[2024-04-05 20:48] LABS: Iron 118 ug/dL (37-170)
[2024-04-05 20:57] LABS: Total Iron Binding Capacity 333 ug/dL (265-497)
[2024-04-05 21:25] LABS: Ferritin 35.8 ng/ml (6.24-137)
[2024-04-10 21:11] LABS: Estrogen 402 pg/mL (.)
== END 2024-04-05 23:59 | disposition home or self-care (01) ==
LOC: LAB.DROPOF 04-06 09:22
PROVIDERS: PCP Nurse Practitioner; Visit Provider Nurse Practitioner
DX: L65.9 Nonscarring hair loss, unspecified (principal)
CPT/HCPCS: 80050; 80053; 82306; 82607; 82672; 82728; 83036; 83540; 83550; 84439; 84443; 85025

== ENCOUNTER 2024-06-29 08:14 | Outpatient (CLI) | payer OTHER, SELFPAY ==
[2024-06-29 20:42] LABS: HCG,Quantitative < 2 mIU/ml (0-5.42)
== END 2024-06-29 23:59 | disposition home or self-care (01) ==
LOC: LAB.DROPOF 06-30 10:45
PROVIDERS: PCP Nurse Practitioner; Visit Provider Nurse Practitioner
DX: N91.2 Amenorrhea, unspecified (principal)
CPT/HCPCS: 84702